=== PATIENT | female | born 1930 | race Caucasian/White ===

== ENCOUNTER 2016-04-10 16:25 | Inpatient (IN) | payer MEDICARE, OTHER ==
[~2016-04-10] VITALS: Ht 167.6 cm; Wt 59.9 kg
[2016-04-10] MEDS ORDERED: FOLI0.4T30 PO (17:07)
[2016-04-10] MEDS ORDERED: CITA10TA68 PO (17:07)
[2016-04-10] MEDS ORDERED: LOVA20 PO (17:07)
[2016-04-10] MEDS ORDERED: CARV25 PO (17:07)
[2016-04-10] MEDS ORDERED: AMLO-511 PO (17:07)
[2016-04-10] MEDS ORDERED: ASPI81 PO (17:07)
[2016-04-10] MEDS ORDERED: LISI-660 PO (17:07)
[2016-04-10] MEDS ORDERED: HYDR50 PO (17:07)
[2016-04-10] MEDS ORDERED: VIT1TABL66 PO (17:07)
[2016-04-10 17:36] LABS: BASOPHILS % (AUTO) 0.1 % (0.0-2.0); EOSINOPHILS % (AUTO) 0 % (1.0-6.0); HEMATOCRIT 24.6 % (36-46); HEMOGLOBIN 8.3 g/dL (12.0-16.0); LYMPHOCYTES # (AUTO) 1.1 K/uL (1.0-4.8); LYMPHOCYTES % (AUTO) 9.2 % (22.0-44.0); MEAN CORPUSCULAR HGB CONC 33.5 G/dL (31.0-37.0); MEAN CORPUSCULAR VOLUME 90 fL (80-100); MONOCYTES # (AUTO) 0.8 K/uL (0.1-1.0); MONOCYTES % (AUTO) 6.9 % (2.0-9.0); NEUTROPHILS % (AUTO) 83.8 % (40.0-70.0); PLATELET COUNT (AUTO) 202 K/uL (150-450); RED BLOOD CELL COUNT(AUTO) 2.75 MIL/uL (4.00-5.20); RED CELL DISTRIBUTION WIDTH 14.1 % (11.5-14.5)
[2016-04-10 17:47] LABS: INR 1.1 (0.9-1.1); PROTHROMBIN TIME 11.5 SEC (9.4-11.6)
[2016-04-10 17:48] LABS: ANION GAP 10 mmol/L (8-16); CALCIUM, TOTAL 8.6 mg/dL (8.8-10.5); CARBON DIOXIDE 26 mmol/L (22-29); CHLORIDE 101 mmol/L (98-107); CREATININE 1.91 mg/dL (0.60-1.30); GLOMERULAR FILTR. RATE CALC 25 mL/min (>60); POTASSIUM 4.3 mmol/L (3.5-5.1); SODIUM SERUM 137 mmol/L (136-145); UREA NITROGEN, BLOOD 52 mg/dL (7-18)
[2016-04-10 18:12] LABS: ALANINE AMINOTRANSFERASE 15 U/L (12-78); ALBUMIN 2.9 g/dL (3.4-5.0); ASPARTATE AMINOTRANSFERASE 17 U/L (15-37); BILIRUBIN,TOTAL 0.6 mg/dL (0.1-1.0); CREATINE KINASE, TOTAL 77 U/L (26-192)
[2016-04-10 18:13] LABS: CREATINE KINASE MB < 0.5 ng/mL (0-5)
[2016-04-10] MEDS ORDERED: SODIUM CHLORIDE 0.9% 1,000 ML IV ONE (18:30)
[2016-04-10 19:06] LABS: APPEARANCE,URINE CLOUDY (CLEAR); GLUCOSE, URINE (UA) NEGATIVE (NEGATIVE); KETONES,URINE NEGATIVE (NEGATIVE); LEUKOCYTE ESTERASE ,URINE SMALL (NEGATIVE); OCCULT BLOOD,URINE NEGATIVE (NEGATIVE); PH,URINE 5.5 (5.0-8.0); PROTEIN,URINE POS 1+ (NEGATIVE)
[2016-04-10 19:41] LABS: ADD UA MICROSCOPIC YES
[2016-04-10 19:42] LABS: AMORPHOUS SEDIMENT,UR Few /LPF (None Seen); RBC,URINE 0-2 /HPF (0-2); SQUAMOUS EPITHELIAL CELL,UR Many /LPF (None Seen)
[2016-04-10] MEDS ORDERED: CefTRIAXone 1 GM/DEXTROSE 50 ML IV ONE (19:45)
[2016-04-10] MEDS ORDERED: AZITHROMYCIN 500 MG/NS 250 ML IV ONE (19:45)
[2016-04-10 20:16] LABS: INFLUENZA TYPE B NEGATIVE FOR TYPE B (NEGATIVE)
[2016-04-10] MEDS ORDERED: ONDANSETRON HCL 4 MG/2 ML VIAL IVP PRN (20:30)
[2016-04-10] MEDS ORDERED: 0.9% SODIUM CHLORIDE 10 ML SYRINGE IVP PRN (20:30)
[2016-04-10] MEDS ORDERED: ACETAMINOPHEN 325 MG TABLET PO PRN (20:30)
[2016-04-10] MEDS ORDERED: MORPHINE SULFATE 2 MG/ML SYRINGE IVP ONE (20:30)
[2016-04-11] MEDS ORDERED: 0.9% SODIUM CHLORIDE 10 ML SYRINGE IVP PRN (03:15)
[2016-04-11] MEDS ORDERED: ONDANSETRON HCL 4 MG/2 ML VIAL IVP PRN (03:15)
[2016-04-11] MEDS ORDERED: OxyCODONE HCL/ACETAMINOPHEN 5-325 MG TABLET PO PRN ×2 (03:15)
[2016-04-11 06:46] LABS: GLUCOSE,POINT OF CARE 141 MG/DL (70-110)
[2016-04-11 08:53] VITALS: BP 111/55
[2016-04-11] MEDS: PANTOPRAZOLE SODIUM 40 MG/VIAL IVP SCH (10:25)
[2016-04-11] MEDS: DOCUSATE SODIUM 100 MG CAPSULE PO SCH ×2 (10:27→21:00)
[2016-04-11] MEDS: ASPIRIN 81 MG CHEWABLE TABLET PO SCH (10:27)
[2016-04-11] MEDS: AmLODIPine BESYLATE 5 MG TABLET PO SCH (10:28)
[2016-04-11] MEDS: CARVEDILOL 25 MG TABLET PO SCH ×2 (10:28→21:00)
[2016-04-11] MEDS: LISINOPRIL 5 MG TABLET PO SCH (10:28)
[2016-04-11] MEDS: HydrALAZINE HCL 50 MG TABLET PO SCH ×3 (10:28→21:00)
[2016-04-11 11:07] VITALS: BP 128/64
[2016-04-11 11:56] LABS: GLUCOSE,POINT OF CARE 152 MG/DL (70-110)
[2016-04-11] MEDS: FOLIC ACID 0.4 MG TABLET PO SCH (12:41)
[2016-04-11] MEDS: CITALOPRAM HYDROBROMIDE 10 MG TABLET PO SCH (12:41)
[2016-04-11] MEDS: LOVASTATIN 20 MG TABLET PO SCH (12:41)
[2016-04-11 15:35] VITALS: BP 119/51
[2016-04-11] MEDS ORDERED: AZITHROMYCIN 250 MG in SODIUM CHLORIDE 0.9% 150 ML IV SCH (16:00)
[2016-04-11] MEDS ORDERED: SODIUM CHLORIDE 0.9% 500 ML IV ONE (16:12)
[2016-04-11] MEDS: ALBUTEROL SULFATE 2.5 MG/0.5 ML NEB SOLUTION NEB PRN (17:04)
[2016-04-11] MEDS: IPRATROPIUM BROMIDE 0.5 MG/2.5 ML NEB SOLUTION NEB PRN (17:04)
[2016-04-11 18:36] LABS: GLUCOSE,POINT OF CARE 155 MG/DL (70-110)
[2016-04-11 19:46] VITALS: BP 113/41
[2016-04-11] MEDS ORDERED: CefTRIAXone 1 GM/DEXTROSE 50 ML IV SCH (21:00)
[2016-04-11 21:56] LABS: GLUCOSE,POINT OF CARE 150 MG/DL (70-110)
[2016-04-11 23:12] VITALS: BP 107/42
[2016-04-12] VITALS (19 sets, daily range): BP systolic 104–141; BP diastolic 41–62
[2016-04-12 06:50] LABS: CREATININE 1.65 mg/dL (0.60-1.30)
[2016-04-12 06:56] LABS: BASOPHILS # (AUTO) 0.02 K/uL (0.00-0.20); BASOPHILS % (AUTO) 0.2 % (0.0-2.0); EOSINOPHILS # (AUTO) 0.01 K/uL (0.00-0.70); LYMPHOCYTES # (AUTO) 0.9 K/uL (1.0-4.8); LYMPHOCYTES % (AUTO) 10.5 % (22.0-44.0); MEAN CORPUSCULAR HEMOGLOBIN 29.9 pg (26.0-34.0); MEAN CORPUSCULAR HGB CONC 33.6 G/dL (31.0-37.0); MEAN CORPUSCULAR VOLUME 89 fL (80-100); MONOCYTES # (AUTO) 0.6 K/uL (0.1-1.0); MONOCYTES % (AUTO) 6.3 % (2.0-9.0); NEUTROPHILS # (AUTO) 7.4 K/uL (1.8-7.7); NEUTROPHILS % (AUTO) 82.9 % (40.0-70.0); PLATELET COUNT (AUTO) 187 K/uL (150-450); RED BLOOD CELL COUNT(AUTO) 2.29 MIL/uL (4.00-5.20); RED CELL DISTRIBUTION WIDTH 14.6 % (11.5-14.5); WHITE BLOOD COUNT (AUTO) 8.9 K/uL (4.5-11.0)
[2016-04-12 07:00] LABS: HEMOGLOBIN 6.8 g/dL (12.0-16.0)
[2016-04-12 07:01] LABS: HEMATOCRIT 20.3 % (36-46)
[2016-04-12] MEDS: CARVEDILOL 25 MG TABLET PO SCH ×2 (08:29→20:19)
[2016-04-12] MEDS: DOCUSATE SODIUM 100 MG CAPSULE PO SCH ×2 (08:29→20:19)
[2016-04-12] MEDS: PANTOPRAZOLE SODIUM 40 MG/VIAL IVP SCH (08:29)
[2016-04-12] MEDS: LISINOPRIL 5 MG TABLET PO SCH (08:29)
[2016-04-12] MEDS: CITALOPRAM HYDROBROMIDE 10 MG TABLET PO SCH (08:30)
[2016-04-12] MEDS: FOLIC ACID 0.4 MG TABLET PO SCH (08:30)
[2016-04-12] MEDS: AmLODIPine BESYLATE 5 MG TABLET PO SCH (08:30)
[2016-04-12] MEDS: ASPIRIN 81 MG CHEWABLE TABLET PO SCH (08:30)
[2016-04-12] MEDS: HydrALAZINE HCL 50 MG TABLET PO SCH ×3 (08:30→20:19)
[2016-04-12] MEDS: LOVASTATIN 20 MG TABLET PO SCH (08:30)
[2016-04-12 10:28] LABS: HEMOGLOBIN 6.8 g/dL (12.0-16.0)
[2016-04-12 11:51] LABS: GLUCOSE,POINT OF CARE 181 MG/DL (70-110)
[2016-04-12] MEDS: IPRATROPIUM BROMIDE 0.5 MG/2.5 ML NEB SOLUTION NEB PRN (12:47)
[2016-04-12] MEDS: ALBUTEROL SULFATE 2.5 MG/0.5 ML NEB SOLUTION NEB PRN (12:47)
[2016-04-12] MEDS ORDERED: MethylPREDNISolone SOD SUCC 40 MG/ML VIAL IVP SCH (13:15)
[2016-04-12 14:45] LABS: ABG A-A DIFF O2 87.4 mmHg (10-20.0); ABG BASE EXCESS -2.8 mmol/L (-2.0-3.0); ABG HCO3 22.3 mmol/L (22.0-26.0); ABG OXYHEMOGLOBIN 93.2 % (94.0-100.0); ABG PCO2 30 mmHg (35-45); ABG PH 7.468 (7.35-7.450); TEMPERATURE, FAHRENHEIT, BG 98.1 FAHREN (96.0-98.6)
[2016-04-12 14:46] LABS: ALLEN TEST, BLOOD GAS Positive
[2016-04-12 16:56] LABS: GLUCOSE,POINT OF CARE 159 MG/DL (70-110)
[2016-04-12] MEDS: MethylPREDNISolone SOD SUCC 40 MG/ML VIAL IVP SCH (20:19)
[2016-04-12] MEDS ORDERED: SODIUM CHLORIDE 0.9% 250 ML IV ONE (20:43)
[2016-04-12] MEDS: CefoTEtan DISOD 1 GM/DEXTROSE 50 ML IV SCH (20:51)
[2016-04-12 21:35] LABS: GLUCOSE,POINT OF CARE 174 MG/DL (70-110)
[2016-04-12 22:30] LABS: HEMATOCRIT 27.6 % (36-46); HEMOGLOBIN 9.1 g/dL (12.0-16.0)
[2016-04-13] MEDS: MethylPREDNISolone SOD SUCC 40 MG/ML VIAL IVP SCH ×4 (00:03→17:18)
[2016-04-13] MEDS: ALBUTEROL SULFATE 2.5 MG/0.5 ML NEB SOLUTION NEB PRN (00:22)
[2016-04-13] MEDS: IPRATROPIUM BROMIDE 0.5 MG/2.5 ML NEB SOLUTION NEB PRN (00:22)
[2016-04-13 05:10] VITALS: BP 124/58
[2016-04-13 05:31] LABS: GLUCOSE,POINT OF CARE 321 MG/DL (70-110)
[2016-04-13] MEDS: INSULIN ASPART 100 UNITS/ML SQ PRN ×4 (05:39→21:31)
[2016-04-13] MEDS ORDERED: DEXTROSE 50%-WATER 25 GM/50 ML SYRINGE IVP PRN (05:45)
[2016-04-13 06:45] LABS: BASOPHILS % (AUTO) 0.3 % (0.0-2.0); EOSINOPHILS % (AUTO) 0 % (1.0-6.0); HEMATOCRIT 28.9 % (36-46); HEMOGLOBIN 9.7 g/dL (12.0-16.0); LYMPHOCYTES # (AUTO) 0.5 K/uL (1.0-4.8); LYMPHOCYTES % (AUTO) 6.6 % (22.0-44.0); MEAN CORPUSCULAR HEMOGLOBIN 30.1 pg (26.0-34.0); MEAN CORPUSCULAR HGB CONC 33.4 G/dL (31.0-37.0); MEAN CORPUSCULAR VOLUME 90 fL (80-100); MONOCYTES % (AUTO) 0.4 % (2.0-9.0); NEUTROPHILS # (AUTO) 7.7 K/uL (1.8-7.7); PLATELET COUNT (AUTO) 193 K/uL (150-450); RED BLOOD CELL COUNT(AUTO) 3.21 MIL/uL (4.00-5.20); RED CELL DISTRIBUTION WIDTH 14.3 % (11.5-14.5); WHITE BLOOD COUNT (AUTO) 8.3 K/uL (4.5-11.0)
[2016-04-13 06:53] LABS: NEUTROPHILS % (AUTO) 92.7 % (40.0-70.0)
[2016-04-13 07:00] VITALS: BP 140/54
[2016-04-13] MEDS: DOCUSATE SODIUM 100 MG CAPSULE PO SCH ×2 (09:12→21:27)
[2016-04-13] MEDS: FOLIC ACID 0.4 MG TABLET PO SCH (09:12)
[2016-04-13] MEDS: PANTOPRAZOLE SODIUM 40 MG/VIAL IVP SCH (09:12)
[2016-04-13] MEDS: HydrALAZINE HCL 50 MG TABLET PO SCH ×3 (09:13→21:27)
[2016-04-13] MEDS: CARVEDILOL 25 MG TABLET PO SCH ×2 (09:13→21:27)
[2016-04-13] MEDS: ASPIRIN 81 MG CHEWABLE TABLET PO SCH (09:13)
[2016-04-13] MEDS: LOVASTATIN 20 MG TABLET PO SCH (09:13)
[2016-04-13 10:02] VITALS: BP 136/58
[2016-04-13 12:02] VITALS: BP 131/52
[2016-04-13 12:31] LABS: GLUCOSE,POINT OF CARE 301 MG/DL (70-110)
[2016-04-13 16:12] VITALS: BP 139/64
[2016-04-13 20:06] VITALS: BP 131/65
[2016-04-13] MEDS: CefoTEtan DISOD 1 GM/DEXTROSE 50 ML IV SCH (21:27)
[2016-04-14] MEDS: MethylPREDNISolone SOD SUCC 40 MG/ML VIAL IVP SCH ×2 (00:37→09:24)
[2016-04-14 01:02] VITALS: BP 139/60
[2016-04-14 04:00] VITALS: BP 142/62
[2016-04-14 04:12] LABS: GLUCOSE COMMENT 1 Received Meds; GLUCOSE,POINT OF CARE 342 MG/DL (70-110)
[2016-04-14 04:12] LABS: GLUCOSE,POINT OF CARE 252 MG/DL (70-110)
[2016-04-14] MEDS: INSULIN ASPART 100 UNITS/ML SQ PRN (05:45)
[2016-04-14 06:11] LABS: GLUCOSE COMMENT 1 Received Meds; GLUCOSE,POINT OF CARE 295 MG/DL (70-110)
[2016-04-14 07:40] LABS: CALCIUM, TOTAL 8.6 mg/dL (8.8-10.5); CREATININE 1.29 mg/dL (0.60-1.30); POTASSIUM 4.3 mmol/L (3.5-5.1)
[2016-04-14 07:53] VITALS: BP 147/63
[2016-04-14] MEDS: ASPIRIN 81 MG CHEWABLE TABLET PO SCH (09:24)
[2016-04-14] MEDS: FOLIC ACID 0.4 MG TABLET PO SCH (09:24)
[2016-04-14] MEDS: DOCUSATE SODIUM 100 MG CAPSULE PO SCH (09:24)
[2016-04-14] MEDS: PANTOPRAZOLE SODIUM 40 MG/VIAL IVP SCH (09:24)
[2016-04-14] MEDS: LOVASTATIN 20 MG TABLET PO SCH (09:24)
[2016-04-14] MEDS: CARVEDILOL 25 MG TABLET PO SCH (09:24)
[2016-04-14] MEDS: HydrALAZINE HCL 50 MG TABLET PO SCH (09:24)
[2016-04-14 11:56] VITALS: BP 146/63
[2016-04-14] MEDS ORDERED: BACTDSB PO (12:10)
== END 2016-04-14 12:48 | disposition home health service (06) | DRG 682 ==
LOC: EMS 16:33 → 6N 04-11 05:17 → UNDODISIN 04-14 11:00
PROVIDERS: ADMIT Internal Medicine; ATTEND Internal Medicine
PROC: 30233N1 Transfusion of Nonautologous Red Blood Cells into Peripheral Vein, Percutaneous Approach (ICD-10-PCS; principal; 2016-04-12)
DX: N17.9 Acute kidney failure, unspecified (principal); J18.9 Pneumonia, unspecified organism; E43 Unspecified severe protein-calorie malnutrition; N39.0 Urinary tract infection, site not specified; J45.901 Unspecified asthma with (acute) exacerbation; D63.8 Anemia in other chronic diseases classified elsewhere; R53.81 Other malaise; E11.9 Type 2 diabetes mellitus without complications; I25.10 Atherosclerotic heart disease of native coronary artery without angina pectoris; F03.90 Unspecified dementia, unspecified severity, without behavioral disturbance, psychotic disturbance, mood disturbance, and anxiety; E86.0 Dehydration; R91.1 Solitary pulmonary nodule; J44.9 Chronic obstructive pulmonary disease, unspecified; E78.00 Pure hypercholesterolemia, unspecified; I10 Essential (primary) hypertension; Z74.01 Bed confinement status; Z68.21 Body mass index [BMI] 21.0-21.9, adult; Z16.35 Resistance to multiple antimicrobial drugs; Z79.82 Long term (current) use of aspirin; Z79.899 Other long term (current) drug therapy; Z95.0 Presence of cardiac pacemaker; Z99.81 Dependence on supplemental oxygen; Z82.49 Family history of ischemic heart disease and other diseases of the circulatory system
CPT/HCPCS: 71250; 82805; 82962; 85014; 85018; 86850; 86900; 86901; 86920; 87040; 87086; 87804; 93005; 94640; 97163; 99285; C9113; J0456; J0696; J2270; J2920; J3490; J7040; J7050; P9016

== ENCOUNTER 2016-09-13 10:34 | Emergency (ER) | payer MEDICARE, OTHER ==
[~2016-09-13] VITALS: Ht 152.4 cm; Wt 98.0 kg
[~2016-09-13 10:34] MED LIST: ASPI81 PO; BACTDSB PO; CARV25 PO; FOLI0.4T30 PO; HYDR-2924 PO; LOVA20 PO; VIT1TABL66 PO
[2016-09-13] MEDS ORDERED: OMEP20 PO (10:47)
[2016-09-13] MEDS ORDERED: LISI-662 PO (10:47)
[2016-09-13] MEDS ORDERED: CITA20TA9 PO (10:47)
[2016-09-13 12:21] LABS: ADD UA MICROSCOPIC YES; APPEARANCE,URINE CLOUDY (CLEAR); GLUCOSE, URINE (UA) NEGATIVE (NEGATIVE); KETONES,URINE NEGATIVE (NEGATIVE); LEUKOCYTE ESTERASE ,URINE NEGATIVE (NEGATIVE); OCCULT BLOOD,URINE TRACE (NEGATIVE); PH,URINE 5.5 (5.0-8.0); PROTEIN,URINE NEGATIVE (NEGATIVE)
[2016-09-13 12:25] LABS: BASOPHILS # (AUTO) 0.03 K/uL (0.00-0.20); BASOPHILS % (AUTO) 0.5 % (0.0-2.0); EOSINOPHILS # (AUTO) 0.05 K/uL (0.00-0.70); HEMATOCRIT 30.5 % (36-46); HEMOGLOBIN 10.4 g/dL (12.0-16.0); LYMPHOCYTES % (AUTO) 17.7 % (22.0-44.0); MEAN CORPUSCULAR VOLUME 94 fL (80-100); MONOCYTES # (AUTO) 0.4 K/uL (0.1-1.0); NEUTROPHILS # (AUTO) 4.3 K/uL (1.8-7.7); PLATELET COUNT (AUTO) 149 K/uL (150-450); RED BLOOD CELL COUNT(AUTO) 3.24 MIL/uL (4.00-5.20); RED CELL DISTRIBUTION WIDTH 13.8 % (11.5-14.5); WHITE BLOOD COUNT (AUTO) 5.8 K/uL (4.5-11.0)
[2016-09-13 12:29] LABS: ANION GAP 8 mmol/L (8-16); CALCIUM, TOTAL 9.3 mg/dL (8.8-10.5); CARBON DIOXIDE 28 mmol/L (22-29); CHLORIDE 108 mmol/L (98-107); CREATININE 1.16 mg/dL (0.60-1.30); GLOMERULAR FILTR. RATE CALC 44 mL/min (>60); POTASSIUM 5.2 mmol/L (3.5-5.1); SODIUM SERUM 144 mmol/L (136-145); UREA NITROGEN, BLOOD 23 mg/dL (7-18)
[2016-09-13 12:30] LABS: RBC,URINE 0-2 /HPF (0-2); SQUAMOUS EPITHELIAL CELL,UR Few /LPF (None Seen); WBC,URINE 0-2 /HPF (0-5)
[2016-09-13 12:35] LABS: ALANINE AMINOTRANSFERASE 19 U/L (12-78); ALBUMIN 3.3 g/dL (3.4-5.0); ASPARTATE AMINOTRANSFERASE 19 U/L (15-37); BILIRUBIN,TOTAL 0.3 mg/dL (0.1-1.0); CREATINE KINASE, TOTAL 27 U/L (26-192); TOTAL PROTEIN, SERUM 6.6 g/dL (6.4-8.2)
[2016-09-13 12:44] LABS: B-TYPE NATRIURETIC PEPTIDE 74 pg/mL (0-100)
[2016-09-13] MEDS ORDERED: SODIUM CHLORIDE 0.9% 1,000 ML IV ONE (12:45)
[2016-09-13 15:24] VITALS: BP 152/72
== END 2016-09-13 15:50 | disposition home or self-care (01) ==
LOC: EMS 10:35
DX: E86.0 Dehydration (principal); I10 Essential (primary) hypertension; E11.9 Type 2 diabetes mellitus without complications; E78.00 Pure hypercholesterolemia, unspecified; I25.10 Atherosclerotic heart disease of native coronary artery without angina pectoris; Z95.0 Presence of cardiac pacemaker; Z79.82 Long term (current) use of aspirin
CPT/HCPCS: 36415; 71010; 80053; 81001; 82550; 82962; 83880; 84484; 85025; 93005; 96360; 96361; 99285; J7030

== ENCOUNTER 2016-09-26 15:56 | Inpatient (IN) | payer MEDICARE, OTHER ==
[~2016-09-26] VITALS: Ht 157.5 cm; Wt 56.0 kg
[~2016-09-26 15:56] MED LIST changes: -BACTDSB PO; +CITA20TA9 PO; +LISI-662 PO; -LOVA20 PO; +OMEP20 PO
[2016-09-26 16:49] LABS: BASOPHILS % (AUTO) 0.5 % (0.0-2.0); EOSINOPHILS % (AUTO) 0.7 % (1.0-6.0); HEMATOCRIT 29.2 % (36-46); HEMOGLOBIN 9.8 g/dL (12.0-16.0); LYMPHOCYTES # (AUTO) 1.2 K/uL (1.0-4.8); LYMPHOCYTES % (AUTO) 20.8 % (22.0-44.0); MEAN CORPUSCULAR HEMOGLOBIN 31.1 pg (26.0-34.0); MEAN CORPUSCULAR HGB CONC 33.4 G/dL (31.0-37.0); MEAN CORPUSCULAR VOLUME 93 fL (80-100); MONOCYTES # (AUTO) 0.4 K/uL (0.1-1.0); MONOCYTES % (AUTO) 6.4 % (2.0-9.0); NEUTROPHILS # (AUTO) 4.2 K/uL (1.8-7.7); NEUTROPHILS % (AUTO) 71.6 % (40.0-70.0); PLATELET COUNT (AUTO) 126 K/uL (150-450); RED BLOOD CELL COUNT(AUTO) 3.13 MIL/uL (4.00-5.20); RED CELL DISTRIBUTION WIDTH 14.1 % (11.5-14.5); WHITE BLOOD COUNT (AUTO) 5.9 K/uL (4.5-11.0)
[2016-09-26 17:02] LABS: ANION GAP 5 mmol/L (8-16); CALCIUM, TOTAL 9.1 mg/dL (8.8-10.5); CARBON DIOXIDE 28 mmol/L (22-29); CHLORIDE 108 mmol/L (98-107); CREATININE 1.33 mg/dL (0.60-1.30); GLOMERULAR FILTR. RATE CALC 38 mL/min (>60); POTASSIUM 5.1 mmol/L (3.5-5.1); SODIUM SERUM 141 mmol/L (136-145); UREA NITROGEN, BLOOD 39 mg/dL (7-18)
[2016-09-26 17:08] LABS: ALANINE AMINOTRANSFERASE 56 U/L (12-78); ALBUMIN 3.2 g/dL (3.4-5.0); ASPARTATE AMINOTRANSFERASE 36 U/L (15-37); BILIRUBIN,TOTAL 0.3 mg/dL (0.1-1.0); CREATINE KINASE, TOTAL 31 U/L (26-192); TOTAL PROTEIN, SERUM 6.5 g/dL (6.4-8.2)
[2016-09-26 17:26] LABS: B-TYPE NATRIURETIC PEPTIDE 78 pg/mL (0-100)
[2016-09-26 17:36] LABS: INR 1.1 (0.9-1.1); PROTHROMBIN TIME 11.4 SEC (9.4-11.6)
[2016-09-26 18:04] LABS: APPEARANCE,URINE TURBID (CLEAR); GLUCOSE, URINE (UA) NEGATIVE (NEGATIVE); KETONES,URINE NEGATIVE (NEGATIVE); LEUKOCYTE ESTERASE ,URINE TRACE (NEGATIVE); PROTEIN,URINE NEGATIVE (NEGATIVE)
[2016-09-26 18:06] LABS: ADD UA MICROSCOPIC YES; OCCULT BLOOD,URINE SMALL (NEGATIVE)
[2016-09-26 18:07] LABS: SQUAMOUS EPITHELIAL CELL,UR Few /LPF (None Seen)
[2016-09-26] MEDS ORDERED: ACETAMINOPHEN 325 MG TABLET PO PRN ×2 (19:15→23:00)
[2016-09-26] MEDS ORDERED: SODIUM CHLORIDE 0.9% 1,000 ML IV ONE (19:15)
[2016-09-26] MEDS ORDERED: CefTRIAXone 1 GM/DEXTROSE 50 ML IV ONE (19:15)
[2016-09-26] MEDS ORDERED: ONDANSETRON HCL 4 MG/2 ML VIAL IVP PRN ×2 (19:15→23:00)
[2016-09-26] MEDS ORDERED: 0.9% SODIUM CHLORIDE 10 ML SYRINGE IVP PRN ×2 (19:15→23:00)
[2016-09-26 21:17] LABS: GLUCOSE,POINT OF CARE 128 MG/DL (70-110)
[2016-09-26 21:57] VITALS: BP 159/74
[2016-09-26] MEDS ORDERED: MAGNESIUM HYDROXIDE SUSPENSION 30 ML UDCUP PO PRN (23:00)
[2016-09-26] MEDS: CARVEDILOL 25 MG TABLET PO SCH (23:00)
[2016-09-26] MEDS ORDERED: OxyCODONE HCL/ACETAMINOPHEN 5-325 MG TABLET PO PRN ×2 (23:00)
[2016-09-26 23:34] VITALS: BP 160/69
[2016-09-26] MEDS: DOCUSATE SODIUM 100 MG CAPSULE PO SCH (23:40)
[2016-09-26] MEDS: SODIUM CHLORIDE 0.9% 1,000 ML IV SCH (23:41)
[2016-09-27] MEDS ORDERED: PNEUMOCOCCAL VACCINE POLYVALENT 0.5 ML VIAL [PPSV23] IM ONE (01:15)
[2016-09-27 04:39] VITALS: BP 156/70
[2016-09-27 07:03] LABS: BASOPHILS % (AUTO) 0.6 % (0.0-2.0); EOSINOPHILS % (AUTO) 1.5 % (1.0-6.0); HEMOGLOBIN 10.1 g/dL (12.0-16.0); LYMPHOCYTES # (AUTO) 1.3 K/uL (1.0-4.8); MEAN CORPUSCULAR HEMOGLOBIN 32.2 pg (26.0-34.0); MEAN CORPUSCULAR HGB CONC 34.8 G/dL (31.0-37.0); MEAN CORPUSCULAR VOLUME 92 fL (80-100); MONOCYTES # (AUTO) 0.4 K/uL (0.1-1.0); MONOCYTES % (AUTO) 7.8 % (2.0-9.0); NEUTROPHILS # (AUTO) 3.5 K/uL (1.8-7.7); NEUTROPHILS % (AUTO) 65.1 % (40.0-70.0); PLATELET COUNT (AUTO) 126 K/uL (150-450); RED BLOOD CELL COUNT(AUTO) 3.15 MIL/uL (4.00-5.20); RED CELL DISTRIBUTION WIDTH 14.2 % (11.5-14.5); WHITE BLOOD COUNT (AUTO) 5.3 K/uL (4.5-11.0)
[2016-09-27 07:29] VITALS: BP 160/69
[2016-09-27 07:32] LABS: BILIRUBIN,TOTAL 0.4 mg/dL (0.1-1.0); CALCIUM, TOTAL 9.1 mg/dL (8.8-10.5); CREATININE 1.07 mg/dL (0.60-1.30); POTASSIUM 4.6 mmol/L (3.5-5.1); TOTAL PROTEIN, SERUM 6.4 g/dL (6.4-8.2)
[2016-09-27] MEDS: CARVEDILOL 25 MG TABLET PO SCH ×2 (09:00→20:09)
[2016-09-27] MEDS: PANTOPRAZOLE SODIUM 40 MG/VIAL IVP SCH (10:18)
[2016-09-27] MEDS: SODIUM CHLORIDE 0.9% 1,000 ML IV SCH ×2 (10:18→20:08)
[2016-09-27] MEDS: HydrALAZINE HCL 50 MG TABLET PO SCH ×3 (10:20→20:08)
[2016-09-27] MEDS: DOCUSATE SODIUM 100 MG CAPSULE PO SCH ×2 (10:20→20:09)
[2016-09-27] MEDS: ASPIRIN 81 MG CHEWABLE TABLET PO SCH (10:20)
[2016-09-27] MEDS: FOLIC ACID 0.4 MG TABLET PO SCH (10:20)
[2016-09-27] MEDS: LISINOPRIL 20 MG TABLET PO SCH (10:20)
[2016-09-27] MEDS ORDERED: DEXTROSE 50%-WATER 25 GM/50 ML SYRINGE IVP PRN (11:15)
[2016-09-27 11:28] VITALS: BP 174/68
[2016-09-27] MEDS: INSULIN ASPART 100 UNITS/ML SQ PRN ×2 (13:12→18:50)
[2016-09-27 15:16] VITALS: BP 147/61
[2016-09-27 19:42] LABS: GLUCOSE,POINT OF CARE 176 MG/DL (70-110)
[2016-09-27 19:42] LABS: GLUCOSE,POINT OF CARE 173 MG/DL (70-110)
[2016-09-27 19:48] VITALS: BP 117/50
[2016-09-28 00:02] VITALS: BP 152/63
[2016-09-28] MEDS: SODIUM CHLORIDE 0.9% 1,000 ML IV SCH (04:59)
[2016-09-28 05:24] VITALS: BP 156/63
[2016-09-28 07:05] VITALS: BP 186/70
[2016-09-28 07:57] LABS: GLUCOSE,POINT OF CARE 137 MG/DL (70-110)
[2016-09-28 07:57] LABS: GLUCOSE,POINT OF CARE 117 MG/DL (70-110)
[2016-09-28] MEDS: HydrALAZINE HCL 50 MG TABLET PO SCH ×2 (08:34→16:39)
[2016-09-28] MEDS: LISINOPRIL 20 MG TABLET PO SCH (08:35)
[2016-09-28] MEDS: DOCUSATE SODIUM 100 MG CAPSULE PO SCH (08:35)
[2016-09-28] MEDS: ASPIRIN 81 MG CHEWABLE TABLET PO SCH (08:35)
[2016-09-28] MEDS: CARVEDILOL 25 MG TABLET PO SCH (08:35)
[2016-09-28] MEDS: PANTOPRAZOLE SODIUM 40 MG/VIAL IVP SCH (08:35)
[2016-09-28] MEDS: FOLIC ACID 0.4 MG TABLET PO SCH (08:35)
[2016-09-28 11:32] VITALS: BP 147/58
[2016-09-28] MEDS ORDERED: AMLO-512 PO (11:45)
[2016-09-28] MEDS ORDERED: AmLODIPine BESYLATE 10 MG TABLET PO SCH (11:45)
[2016-09-28] MEDS ORDERED: AMLO10TA4 PO (11:50)
[2016-09-28] MEDS: INSULIN ASPART 100 UNITS/ML SQ PRN (12:44)
[2016-09-28 14:57] LABS: GLUCOSE COMMENT 1 Received Meds; GLUCOSE,POINT OF CARE 160 MG/DL (70-110)
[2016-09-28 15:28] VITALS: BP 139/59
== END 2016-09-28 17:15 | disposition home or self-care (01) | DRG 683 ==
LOC: EMS 15:58 → 5S 19:00
PROVIDERS: ADMIT Internal Medicine; ATTEND Internal Medicine
PROC: 3E0234Z Introduction of Serum, Toxoid and Vaccine into Muscle, Percutaneous Approach (ICD-10-PCS; principal; 2016-09-27)
DX: N17.9 Acute kidney failure, unspecified (principal); N39.0 Urinary tract infection, site not specified; R55 Syncope and collapse; E86.0 Dehydration; N18.9 Chronic kidney disease, unspecified; I12.9 Hypertensive chronic kidney disease with stage 1 through stage 4 chronic kidney disease, or unspecified chronic kidney disease; I25.10 Atherosclerotic heart disease of native coronary artery without angina pectoris; E78.00 Pure hypercholesterolemia, unspecified; E11.22 Type 2 diabetes mellitus with diabetic chronic kidney disease; G30.9 Alzheimer's disease, unspecified; F02.80 Dementia in other diseases classified elsewhere, unspecified severity, without behavioral disturbance, psychotic disturbance, mood disturbance, and anxiety; D64.9 Anemia, unspecified; B96.1 Klebsiella pneumoniae [K. pneumoniae] as the cause of diseases classified elsewhere; Z82.49 Family history of ischemic heart disease and other diseases of the circulatory system; Z95.0 Presence of cardiac pacemaker; Z23 Encounter for immunization
CPT/HCPCS: 70450; 82962; 87081; 87086; 90471; 93005; 93880; 96365; 99285; C9113; J0696; J7030

== ENCOUNTER 2017-02-05 00:17 | Inpatient (IN) | payer MEDICARE, OTHER ==
[~2017-02-05] VITALS: Ht 160 cm; Wt 53.0 kg
[2017-02-05] VITALS (7 sets, daily range): BP systolic 101–142; BP diastolic 47–58
[~2017-02-05 00:17] MED LIST changes: +AMLO-512 PO; -CARV25 PO; -CITA20TA9 PO; -FOLI0.4T30 PO; +FOLI0.4T4 PO; -LISI-662 PO
[2017-02-05 00:32] LABS: GLUCOSE,POINT OF CARE 193 MG/DL (70-110)
[2017-02-05] MEDS ORDERED: ONDANSETRON HCL 4 MG/2 ML VIAL IVP ONE (01:00)
[2017-02-05] MEDS ORDERED: SODIUM CHLORIDE 0.9% 500 ML IV ONE (01:00)
[2017-02-05] MEDS ORDERED: ACETAMINOPHEN 500 MG TABLET PO ONE (01:00)
[2017-02-05 01:03] LABS: BASOPHILS # (AUTO) 0.01 K/uL (0.00-0.20); BASOPHILS % (AUTO) 0.1 % (0.0-2.0); EOSINOPHILS # (AUTO) 0.06 K/uL (0.00-0.70); EOSINOPHILS % (AUTO) 0.42 % (1.0-6.0); HEMOGLOBIN 10.3 g/dL (12.0-16.0); LYMPHOCYTES # (AUTO) 0.8 K/uL (1.0-4.8); LYMPHOCYTES % (AUTO) 5.8 % (22.0-44.0); MEAN CORPUSCULAR HEMOGLOBIN 31.9 pg (26.0-34.0); MEAN CORPUSCULAR HGB CONC 33.1 G/dL (31.0-37.0); MEAN CORPUSCULAR VOLUME 96 fL (80-100); MONOCYTES # (AUTO) 0.6 K/uL (0.1-1.0); MONOCYTES % (AUTO) 4.3 % (2.0-9.0); NEUTROPHILS # (AUTO) 12.5 K/uL (1.8-7.7); PLATELET COUNT (AUTO) 135 K/uL (150-450); RED BLOOD CELL COUNT(AUTO) 3.22 MIL/uL (4.00-5.20); WHITE BLOOD COUNT (AUTO) 13.9 K/uL (4.5-11.0)
[2017-02-05 01:05] LABS: NEUTROPHILS % (AUTO) 89.4 % (40.0-70.0)
[2017-02-05 01:14] LABS: ANION GAP 10 mmol/L (8-16); CALCIUM, TOTAL 9.2 mg/dL (8.8-10.5); CARBON DIOXIDE 27 mmol/L (22-29); CHLORIDE 103 mmol/L (98-107); CREATININE 1.23 mg/dL (0.60-1.30); GLOMERULAR FILTR. RATE CALC 41 mL/min (>60); POTASSIUM 4.6 mmol/L (3.5-5.1); SODIUM SERUM 140 mmol/L (136-145); UREA NITROGEN, BLOOD 40 mg/dL (7-18)
[2017-02-05 01:16] LABS: INR 1.1 (0.9-1.1); PROTHROMBIN TIME 11.2 SEC (9.4-11.6)
[2017-02-05 01:20] LABS: ALANINE AMINOTRANSFERASE 24 U/L (12-78); ALBUMIN 3.4 g/dL (3.4-5.0); ASPARTATE AMINOTRANSFERASE 18 U/L (15-37); BILIRUBIN,TOTAL 0.6 mg/dL (0.1-1.0); CREATINE KINASE, TOTAL 38 U/L (26-192); TOTAL PROTEIN, SERUM 6.8 g/dL (6.4-8.2)
[2017-02-05 01:27] LABS: B-TYPE NATRIURETIC PEPTIDE 134 pg/mL (0-100)
[2017-02-05 02:27] LABS: APPEARANCE,URINE CLOUDY (CLEAR); GLUCOSE, URINE (UA) NEGATIVE (NEGATIVE); KETONES,URINE NEGATIVE (NEGATIVE); LEUKOCYTE ESTERASE ,URINE MODERATE (NEGATIVE); OCCULT BLOOD,URINE MODERATE (NEGATIVE); PH,URINE 7.5 (5.0-8.0); PROTEIN,URINE SEE CONFIRM (NEGATIVE)
[2017-02-05 02:30] LABS: ADD UA MICROSCOPIC YES
[2017-02-05] MEDS ORDERED: CefTRIAXone 1 GM/DEXTROSE 50 ML IV ONE (02:30)
[2017-02-05] MEDS ORDERED: AZITHROMYCIN 500 MG/NS 250 ML IV ONE (02:30)
[2017-02-05 02:58] LABS: SQUAMOUS EPITHELIAL CELL,UR Few /LPF (None Seen); SULFOSALICYLIC ACID,URINE 1+ (Negative)
[2017-02-05] MEDS ORDERED: ALBUTEROL SULFATE 2.5 MG/0.5 ML NEB SOLUTION NEB ONE (03:00)
[2017-02-05] MEDS ORDERED: IPRATROPIUM BROMIDE 0.5 MG/2.5 ML NEB SOLUTION NEB ONE (03:00)
[2017-02-05] MEDS ORDERED: ASPIRIN 81 MG CHEWABLE TABLET PO ONE (03:15)
[2017-02-05] MEDS ORDERED: DEXTROSE 50%-WATER 25 GM/50 ML SYRINGE IVP PRN (11:30)
[2017-02-05] MEDS: SODIUM CHLORIDE 0.45% 1,000 ML IV SCH (12:58)
[2017-02-05] MEDS: HydrALAZINE HCL 50 MG TABLET PO SCH ×2 (16:00→20:22)
[2017-02-05] MEDS: HEPARIN SODIUM,PORCINE 5,000 UNITS/ML VIAL SQ SCH ×2 (16:09→20:22)
[2017-02-05 17:23] LABS: GLUCOSE,POINT OF CARE 136 MG/DL (70-110)
[2017-02-05] MEDS: FAMOTIDINE 20 MG TABLET PO SCH (20:22)
[2017-02-05] MEDS ORDERED: CefTRIAXone 1 GM/DEXTROSE 50 ML IV SCH (21:00)
[2017-02-05] MEDS ORDERED: AZITHROMYCIN 500 MG/NS 250 ML IV SCH (22:00)
[2017-02-05] MEDS: INSULIN ASPART 100 UNITS/ML SQ PRN (22:35)
[2017-02-06 01:34] LABS: GLUCOSE COMMENT 1 Received Meds; GLUCOSE,POINT OF CARE 188 MG/DL (70-110)
[2017-02-06 04:14] VITALS: BP 135/54
[2017-02-06] MEDS: SODIUM CHLORIDE 0.45% 1,000 ML IV SCH (04:16)
[2017-02-06 06:12] LABS: GLUCOSE,POINT OF CARE 112 MG/DL (70-110)
[2017-02-06 07:55] VITALS: BP 140/55
[2017-02-06] MEDS: ASPIRIN 81 MG CHEWABLE TABLET PO SCH (08:53)
[2017-02-06] MEDS: FAMOTIDINE 20 MG TABLET PO SCH ×2 (08:53→20:32)
[2017-02-06] MEDS: HydrALAZINE HCL 50 MG TABLET PO SCH ×3 (08:53→20:22)
[2017-02-06] MEDS: HEPARIN SODIUM,PORCINE 5,000 UNITS/ML VIAL SQ SCH ×3 (08:53→20:32)
[2017-02-06] MEDS: AmLODIPine BESYLATE 10 MG TABLET PO SCH (08:53)
[2017-02-06] MEDS: FOLIC ACID 0.4 MG TABLET PO SCH (08:53)
[2017-02-06] MEDS ORDERED: ASPIRIN 81 MG CHEWABLE TABLET PO SCH (09:00)
[2017-02-06] MEDS ORDERED: [UNRECOGNIZED DRUG - OTHER] PO SCH (09:00)
[2017-02-06] MEDS ORDERED: AmLODIPine BESYLATE 10 MG TABLET PO SCH (09:00)
[2017-02-06] MEDS ORDERED: FOLIC ACID 0.4 MG TABLET PO SCH (09:00)
[2017-02-06 11:32] VITALS: BP 142/54
[2017-02-06 12:08] LABS: GLUCOSE COMMENT 1 Received Meds; GLUCOSE,POINT OF CARE 206 MG/DL (70-110)
[2017-02-06] MEDS ORDERED: PIPERACILLIN SODIUM/TAZOBACTAM 2.25 GM in DEXTROSE 5%-WATER 50 ML IV SCH (16:00)
[2017-02-06 16:07] VITALS: BP 132/51
[2017-02-06] MEDS ORDERED: VANCOMYCIN HCL 1 GM/D5% WATER 200 ML IV ONE (16:30)
[2017-02-06 17:22] LABS: GLUCOSE,POINT OF CARE 111 MG/DL (70-110)
[2017-02-06 19:42] VITALS: BP 98/55
[2017-02-06] MEDS: INSULIN ASPART 100 UNITS/ML SQ PRN (20:32)
[2017-02-06] MEDS: CefTRIAXone 1 GM/DEXTROSE 50 ML IV SCH (20:32)
[2017-02-06 23:33] VITALS: BP 123/71
[2017-02-07] VITALS (7 sets, daily range): BP systolic 116–140; BP diastolic 46–68
[2017-02-07 01:28] LABS: GLUCOSE,POINT OF CARE 191 MG/DL (70-110)
[2017-02-07] MEDS: INSULIN ASPART 100 UNITS/ML SQ PRN ×3 (06:15→21:20)
[2017-02-07] MEDS: SODIUM CHLORIDE 0.45% 1,000 ML IV SCH ×2 (06:15→21:48)
[2017-02-07 06:45] LABS: BASOPHILS # (AUTO) 0.01 K/uL (0.00-0.20); BASOPHILS % (AUTO) 0.1 % (0.0-2.0); EOSINOPHILS # (AUTO) 0.18 K/uL (0.00-0.70); EOSINOPHILS % (AUTO) 2.68 % (1.0-6.0); HEMATOCRIT 26.6 % (36-46); HEMOGLOBIN 9.1 g/dL (12.0-16.0); LYMPHOCYTES # (AUTO) 1.1 K/uL (1.0-4.8); LYMPHOCYTES % (AUTO) 15.7 % (22.0-44.0); MEAN CORPUSCULAR HEMOGLOBIN 31.9 pg (26.0-34.0); MEAN CORPUSCULAR HGB CONC 34.3 G/dL (31.0-37.0); MEAN CORPUSCULAR VOLUME 93 fL (80-100); MONOCYTES # (AUTO) 0.4 K/uL (0.1-1.0); MONOCYTES % (AUTO) 6.5 % (2.0-9.0); NEUTROPHILS # (AUTO) 5.1 K/uL (1.8-7.7); NEUTROPHILS % (AUTO) 75.1 % (40.0-70.0); PLATELET COUNT (AUTO) 133 K/uL (150-450); RED BLOOD CELL COUNT(AUTO) 2.87 MIL/uL (4.00-5.20); RED CELL DISTRIBUTION WIDTH 13.6 % (11.5-14.5); WHITE BLOOD COUNT (AUTO) 6.9 K/uL (4.5-11.0)
[2017-02-07 06:57] LABS: GLUCOSE,POINT OF CARE 145 MG/DL (70-110)
[2017-02-07 07:20] LABS: CALCIUM, TOTAL 8.4 mg/dL (8.8-10.5); CREATININE 1.07 mg/dL (0.60-1.30)
[2017-02-07] MEDS: VANCOMYCIN HCL 750 MG in DEXTROSE 5%-WATER 150 ML IV SCH (08:23)
[2017-02-07] MEDS: FOLIC ACID 0.4 MG TABLET PO SCH (08:25)
[2017-02-07] MEDS: FAMOTIDINE 20 MG TABLET PO SCH ×2 (08:25→20:56)
[2017-02-07] MEDS: AmLODIPine BESYLATE 10 MG TABLET PO SCH (08:25)
[2017-02-07] MEDS: ASPIRIN 81 MG CHEWABLE TABLET PO SCH (08:25)
[2017-02-07] MEDS: HydrALAZINE HCL 50 MG TABLET PO SCH ×3 (08:25→20:56)
[2017-02-07] MEDS: HEPARIN SODIUM,PORCINE 5,000 UNITS/ML VIAL SQ SCH ×3 (08:26→20:56)
[2017-02-07 11:32] LABS: GLUCOSE COMMENT 1 Received Meds; GLUCOSE,POINT OF CARE 252 MG/DL (70-110)
[2017-02-07 13:56] LABS: ORGANISM ID Not indicated.
[2017-02-07 18:22] LABS: GLUCOSE,POINT OF CARE 110 MG/DL (70-110)
[2017-02-07] MEDS: CefTRIAXone 1 GM/DEXTROSE 50 ML IV SCH (21:28)
[2017-02-08] VITALS (7 sets, daily range): BP systolic 110–138; BP diastolic 42–63
[2017-02-08 04:26] LABS: GLUCOSE COMMENT 1 Received Meds; GLUCOSE,POINT OF CARE 228 MG/DL (70-110)
[2017-02-08] MEDS: INSULIN ASPART 100 UNITS/ML SQ PRN ×3 (05:45→17:44)
[2017-02-08 06:49] LABS: CALCIUM, TOTAL 8.4 mg/dL (8.8-10.5); CREATININE 1.07 mg/dL (0.60-1.30); POTASSIUM 4.1 mmol/L (3.5-5.1)
[2017-02-08 07:07] LABS: GLUCOSE COMMENT 1 Received Meds; GLUCOSE,POINT OF CARE 175 MG/DL (70-110)
[2017-02-08] MEDS: VANCOMYCIN HCL 750 MG in DEXTROSE 5%-WATER 150 ML IV SCH (08:11)
[2017-02-08] MEDS: FOLIC ACID 0.4 MG TABLET PO SCH (08:11)
[2017-02-08] MEDS: HydrALAZINE HCL 50 MG TABLET PO SCH ×3 (08:12→20:52)
[2017-02-08] MEDS: AmLODIPine BESYLATE 10 MG TABLET PO SCH (08:12)
[2017-02-08] MEDS: ASPIRIN 81 MG CHEWABLE TABLET PO SCH (08:12)
[2017-02-08] MEDS: FAMOTIDINE 20 MG TABLET PO SCH ×2 (08:12→20:52)
[2017-02-08] MEDS: HEPARIN SODIUM,PORCINE 5,000 UNITS/ML VIAL SQ SCH ×3 (08:12→20:52)
[2017-02-08 11:57] LABS: GLUCOSE COMMENT 1 Received Meds; GLUCOSE,POINT OF CARE 192 MG/DL (70-110)
[2017-02-08] MEDS: SODIUM CHLORIDE 0.45% 1,000 ML IV SCH (16:43)
[2017-02-08 18:32] LABS: GLUCOSE COMMENT 1 Received Meds; GLUCOSE,POINT OF CARE 223 MG/DL (70-110)
[2017-02-08] MEDS: MAGNESIUM HYDROXIDE SUSPENSION 30 ML UDCUP PO PRN (18:50)
[2017-02-08] MEDS: CefTRIAXone 1 GM/DEXTROSE 50 ML IV SCH (20:53)
[2017-02-09] MEDS: SODIUM CHLORIDE 0.45% 1,000 ML IV SCH ×3 (05:13→21:29)
[2017-02-09] MEDS: INSULIN ASPART 100 UNITS/ML SQ PRN ×4 (05:16→20:53)
[2017-02-09 05:40] VITALS: BP 122/55
[2017-02-09 07:07] LABS: CALCIUM, TOTAL 8.4 mg/dL (8.8-10.5); CREATININE 1.12 mg/dL (0.60-1.30); POTASSIUM 4.3 mmol/L (3.5-5.1)
[2017-02-09 07:13] VITALS: BP 125/53
[2017-02-09] MEDS ORDERED: VANCOMYCIN HCL 1 GM/D5% WATER 200 ML IV SCH (08:00)
[2017-02-09 08:17] LABS: GLUCOSE,POINT OF CARE 150 MG/DL (70-110)
[2017-02-09 08:17] LABS: GLUCOSE,POINT OF CARE 171 MG/DL (70-110)
[2017-02-09] MEDS: HydrALAZINE HCL 50 MG TABLET PO SCH ×3 (09:23→20:45)
[2017-02-09] MEDS: FAMOTIDINE 20 MG TABLET PO SCH ×2 (09:23→20:45)
[2017-02-09] MEDS: AmLODIPine BESYLATE 10 MG TABLET PO SCH (09:23)
[2017-02-09] MEDS: ASPIRIN 81 MG CHEWABLE TABLET PO SCH (09:24)
[2017-02-09] MEDS: HEPARIN SODIUM,PORCINE 5,000 UNITS/ML VIAL SQ SCH ×3 (09:24→20:45)
[2017-02-09] MEDS: FOLIC ACID 0.4 MG TABLET PO SCH (09:24)
[2017-02-09 11:50] VITALS: BP 123/54
[2017-02-09 15:12] LABS: GLUCOSE COMMENT 1 Received Meds; GLUCOSE,POINT OF CARE 287 MG/DL (70-110)
[2017-02-09] MEDS: MAGNESIUM HYDROXIDE SUSPENSION 30 ML UDCUP PO PRN (15:21)
[2017-02-09 15:44] VITALS: BP 120/68
[2017-02-09 20:59] VITALS: BP 125/56
[2017-02-09] MEDS ORDERED: INSULIN GLARGINE,HUM.REC.ANLOG 100 UNITS/ML SQ SCH (21:00)
[2017-02-09] MEDS: CefTRIAXone 1 GM/DEXTROSE 50 ML IV SCH (21:29)
[2017-02-10 00:22] VITALS: BP 100/43
[2017-02-10 00:22] LABS: GLUCOSE COMMENT 1 Received Meds; GLUCOSE,POINT OF CARE 169 MG/DL (70-110)
[2017-02-10 00:22] LABS: GLUCOSE,POINT OF CARE 159 MG/DL (70-110)
[2017-02-10 05:17] VITALS: BP 121/59
[2017-02-10 06:42] LABS: GLUCOSE,POINT OF CARE 108 MG/DL (70-110)
[2017-02-10 07:31] LABS: CALCIUM, TOTAL 8.6 mg/dL (8.8-10.5); CREATININE 1.17 mg/dL (0.60-1.30); POTASSIUM 4.6 mmol/L (3.5-5.1)
[2017-02-10 07:35] VITALS: BP 129/60
[2017-02-10] MEDS: ASPIRIN 81 MG CHEWABLE TABLET PO SCH (08:48)
[2017-02-10] MEDS: HydrALAZINE HCL 50 MG TABLET PO SCH ×2 (08:48→16:00)
[2017-02-10] MEDS: AmLODIPine BESYLATE 10 MG TABLET PO SCH ×2 (08:48→12:20)
[2017-02-10] MEDS: FOLIC ACID 0.4 MG TABLET PO SCH (08:48)
[2017-02-10] MEDS: FAMOTIDINE 20 MG TABLET PO SCH (08:48)
[2017-02-10] MEDS: HEPARIN SODIUM,PORCINE 5,000 UNITS/ML VIAL SQ SCH ×2 (08:49→16:00)
[2017-02-10 11:15] VITALS: BP 120/55
[2017-02-10] MEDS: SODIUM CHLORIDE 0.45% 1,000 ML IV SCH (12:32)
[2017-02-10] MEDS: INSULIN ASPART 100 UNITS/ML SQ PRN (12:34)
[2017-02-10 13:42] LABS: GLUCOSE,POINT OF CARE 185 MG/DL (70-110)
[2017-02-10] MEDS ORDERED: CEFTR1IV IV (17:48)
== END 2017-02-10 18:22 | disposition home health service (06) | DRG 871 ==
LOC: EMS 00:18 → 5S 03:18 → 6N 16:23
PROVIDERS: ADMIT Hospitalist; ATTEND Hospitalist
PROC: 0T9B70Z Drainage of Bladder with Drainage Device, Via Natural or Artificial Opening (ICD-10-PCS; principal; 2017-02-05)
DX: A41.9 Sepsis, unspecified organism (principal); J18.9 Pneumonia, unspecified organism; N17.9 Acute kidney failure, unspecified; E11.65 Type 2 diabetes mellitus with hyperglycemia; N39.0 Urinary tract infection, site not specified; I69.354 Hemiplegia and hemiparesis following cerebral infarction affecting left non-dominant side; T82.7XXA Infection and inflammatory reaction due to other cardiac and vascular devices, implants and grafts, initial encounter; F03.90 Unspecified dementia, unspecified severity, without behavioral disturbance, psychotic disturbance, mood disturbance, and anxiety; R51 Headache; I10 Essential (primary) hypertension; I25.10 Atherosclerotic heart disease of native coronary artery without angina pectoris; E78.00 Pure hypercholesterolemia, unspecified; D64.9 Anemia, unspecified; B96.1 Klebsiella pneumoniae [K. pneumoniae] as the cause of diseases classified elsewhere; Z79.899 Other long term (current) drug therapy; Z79.82 Long term (current) use of aspirin; Z95.0 Presence of cardiac pacemaker
CPT/HCPCS: 51702; 70450; 82962; 83036; 85651; 86140; 87040; 87070; 87086; 87205; 87449; 87899; 92610; 93005; 93306; 94640; 96361; 96365; 96368; 96375; 99285; J0456; J0696; J1644; J1815; J2405; J2543; J3370; J7040; J7060

== ENCOUNTER 2017-03-24 19:50 | Inpatient (IN) | payer MEDICARE, OTHER ==
[~2017-03-24] VITALS: Ht 165.1 cm; Wt 56.5 kg
[~2017-03-24 19:50] MED LIST changes: +CEFTR1IV IV
[2017-03-24] MEDS ORDERED: ACETAMINOPHEN 500 MG TABLET PO ONE (20:30)
[2017-03-24 20:37] LABS: GLUCOSE,POINT OF CARE 186 MG/DL (70-110)
[2017-03-24 21:05] LABS: BASOPHILS % (AUTO) 0.6 % (0.0-2.0); EOSINOPHILS % (AUTO) 1.2 % (1.0-6.0); HEMATOCRIT 28.4 % (36-46); HEMOGLOBIN 9.7 g/dL (12.0-16.0); LYMPHOCYTES # (AUTO) 0.5 K/uL (1.0-4.8); LYMPHOCYTES % (AUTO) 9.1 % (22.0-44.0); MEAN CORPUSCULAR HEMOGLOBIN 32.5 pg (26.0-34.0); MEAN CORPUSCULAR HGB CONC 34.1 G/dL (31.0-37.0); MEAN CORPUSCULAR VOLUME 95 fL (80-100); MONOCYTES # (AUTO) 0.4 K/uL (0.1-1.0); MONOCYTES % (AUTO) 6.5 % (2.0-9.0); NEUTROPHILS # (AUTO) 4.8 K/uL (1.8-7.7); NEUTROPHILS % (AUTO) 82.6 % (40.0-70.0); PLATELET COUNT (AUTO) 131 K/uL (150-450); RED BLOOD CELL COUNT(AUTO) 2.98 MIL/uL (4.00-5.20); RED CELL DISTRIBUTION WIDTH 13.8 % (11.5-14.5)
[2017-03-24 21:21] LABS: APPEARANCE,URINE CLEAR (CLEAR); BILIRUBIN,URINE NEGATIVE (NEGATIVE); GLUCOSE, URINE (UA) NEGATIVE (NEGATIVE); KETONES,URINE NEGATIVE (NEGATIVE); LEUKOCYTE ESTERASE ,URINE NEGATIVE (NEGATIVE); NITRATE,URINE NEGATIVE (NEGATIVE); OCCULT BLOOD,URINE SMALL (NEGATIVE); PH,URINE 5.5 (5.0-8.0); PROTEIN,URINE POS 1+ (NEGATIVE); UROBILINOGEN,URINE 0.2 mg/dL (<=1.0)
[2017-03-24 21:21] LABS: ANION GAP 8 mmol/L (8-16); CARBON DIOXIDE 28 mmol/L (22-29); CHLORIDE 104 mmol/L (98-107); GLOMERULAR FILTR. RATE CALC 30 mL/min (>60); GLUCOSE,RANDOM 203 mg/dL (70-110); POTASSIUM 4.2 mmol/L (3.5-5.1); SODIUM SERUM 140 mmol/L (136-145); UREA NITROGEN, BLOOD 42 mg/dL (7-18)
[2017-03-24 21:23] LABS: INR 1.1 (0.9-1.1); PROTHROMBIN TIME 11.2 SEC (9.4-11.6)
[2017-03-24 21:24] LABS: BACTERIA,URINE None Seen /HPF (None Seen); SQUAMOUS EPITHELIAL CELL,UR Few /LPF (None Seen); WBC,URINE None Seen /HPF (0-5)
[2017-03-24 21:29] LABS: LACTIC ACID 1.9 mmol/L (0.4-2.0)
[2017-03-24 21:35] LABS: ALANINE AMINOTRANSFERASE 79 U/L (12-78); ALBUMIN 3.3 g/dL (3.4-5.0); ALKALINE PHOSPHATASE 80 U/L (46-116); ASPARTATE AMINOTRANSFERASE 61 U/L (15-37); BILIRUBIN,TOTAL 0.3 mg/dL (0.1-1.0); CREATINE KINASE, TOTAL 38 U/L (26-192)
[2017-03-24 21:56] LABS: B-TYPE NATRIURETIC PEPTIDE 119 pg/mL (0-100)
[2017-03-24] MEDS ORDERED: 0.9% SODIUM CHLORIDE 10 ML SYRINGE IVP PRN (22:00)
[2017-03-24] MEDS ORDERED: CefTRIAXone 1 GM/DEXTROSE 50 ML IV ONE (22:00)
[2017-03-24] MEDS ORDERED: ACETAMINOPHEN 325 MG TABLET PO PRN (22:00)
[2017-03-24] MEDS ORDERED: AZITHROMYCIN 500 MG/NS 250 ML IV ONE (22:00)
[2017-03-24 22:14] LABS: INFLUENZA TYPE A POSITIVE FOR TYPE A (NEGATIVE); INFLUENZA TYPE B NEGATIVE FOR TYPE B (NEGATIVE)
[2017-03-24 23:59] VITALS: BP 115/61
[2017-03-25 03:29] VITALS: BP 101/47
[2017-03-25] MEDS ORDERED: OxyCODONE HCL/ACETAMINOPHEN 5-325 MG TABLET PO PRN ×2 (06:45)
[2017-03-25] MEDS ORDERED: 0.9% SODIUM CHLORIDE 10 ML SYRINGE IVP PRN (06:45)
[2017-03-25] MEDS ORDERED: OSELTAMIVIR PHOSPHATE 75 MG CAPSULE PO ONE (06:45)
[2017-03-25 07:38] VITALS: BP 108/72
[2017-03-25] MEDS: DOCUSATE SODIUM 100 MG CAPSULE PO SCH ×2 (08:24→20:48)
[2017-03-25] MEDS: FOLIC ACID 0.4 MG TABLET PO SCH (08:24)
[2017-03-25] MEDS: ASPIRIN 81 MG CHEWABLE TABLET PO SCH (08:24)
[2017-03-25] MEDS: OMEPRAZOLE 20 MG CAPSULE PO SCH (08:24)
[2017-03-25] MEDS ORDERED: PANTOPRAZOLE SODIUM 40 MG DR TABLET PO SCH (09:00)
[2017-03-25] MEDS ORDERED: [UNRECOGNIZED DRUG - OTHER] PO SCH (09:00)
[2017-03-25 11:24] VITALS: BP 152/65
[2017-03-25] MEDS: HydrALAZINE HCL 50 MG TABLET PO SCH ×3 (11:48→21:00)
[2017-03-25] MEDS: AmLODIPine BESYLATE 10 MG TABLET PO SCH (11:48)
[2017-03-25 12:33] LABS: GLUCOMETER DEV NAME(LOC) 6N 2D; GLUCOSE,POINT OF CARE 276 MG/DL (70-110)
[2017-03-25] MEDS ORDERED: DEXTROSE 50%-WATER 25 GM/50 ML SYRINGE IVP PRN (14:00)
[2017-03-25 15:35] VITALS: BP 151/48
[2017-03-25] MEDS: AZITHROMYCIN 250 MG TABLET PO SCH (16:22)
[2017-03-25] MEDS: INSULIN ASPART 100 UNITS/ML SQ PRN (17:24)
[2017-03-25 19:31] VITALS: BP 120/44
[2017-03-25] MEDS ORDERED: SODIUM CHLORIDE 0.9% 500 ML IV ONE (20:45)
[2017-03-25] MEDS: OSELTAMIVIR PHOSPHATE 75 MG CAPSULE PO SCH (20:48)
[2017-03-25 21:43] LABS: GLUCOMETER DEV NAME(LOC) 5N 2R; GLUCOSE,POINT OF CARE 157 MG/DL (70-110)
[2017-03-25] MEDS ORDERED: CefTRIAXone 1 GM/DEXTROSE 50 ML IV SCH (22:00)
[2017-03-25 23:18] VITALS: BP 114/43
[2017-03-26 00:42] LABS: GLUCOMETER DEV NAME(LOC) 6N 2D; GLUCOSE,POINT OF CARE 212 MG/DL (70-110)
[2017-03-26 05:36] VITALS: BP 100/57
[2017-03-26 05:58] LABS: GLUCOMETER DEV NAME(LOC) 5N 2R; GLUCOSE,POINT OF CARE 119 MG/DL (70-110)
[2017-03-26 06:43] LABS: BASOPHILS % (AUTO) 0.7 % (0.0-2.0); EOSINOPHILS % (AUTO) 1.8 % (1.0-6.0); HEMATOCRIT 27.4 % (36-46); HEMOGLOBIN 9.4 g/dL (12.0-16.0); LYMPHOCYTES # (AUTO) 1.4 K/uL (1.0-4.8); LYMPHOCYTES % (AUTO) 31.1 % (22.0-44.0); MEAN CORPUSCULAR HEMOGLOBIN 32.8 pg (26.0-34.0); MEAN CORPUSCULAR HGB CONC 34.2 G/dL (31.0-37.0); MEAN CORPUSCULAR VOLUME 96 fL (80-100); MONOCYTES # (AUTO) 0.5 K/uL (0.1-1.0); MONOCYTES % (AUTO) 10.6 % (2.0-9.0); NEUTROPHILS # (AUTO) 2.4 K/uL (1.8-7.7); NEUTROPHILS % (AUTO) 55.8 % (40.0-70.0); PLATELET COUNT (AUTO) 120 K/uL (150-450); RED BLOOD CELL COUNT(AUTO) 2.86 MIL/uL (4.00-5.20); RED CELL DISTRIBUTION WIDTH 13.6 % (11.5-14.5)
[2017-03-26 07:06] LABS: CALCIUM, TOTAL 8.6 mg/dL (8.8-10.5); CREATININE 1.38 mg/dL (0.60-1.30); POTASSIUM 4.1 mmol/L (3.5-5.1)
[2017-03-26 07:40] VITALS: BP 116/41
[2017-03-26] MEDS: ASPIRIN 81 MG CHEWABLE TABLET PO SCH (08:31)
[2017-03-26] MEDS: DOCUSATE SODIUM 100 MG CAPSULE PO SCH ×2 (08:31→19:58)
[2017-03-26] MEDS: OMEPRAZOLE 20 MG CAPSULE PO SCH (08:31)
[2017-03-26] MEDS: FOLIC ACID 0.4 MG TABLET PO SCH (08:32)
[2017-03-26] MEDS: OSELTAMIVIR PHOSPHATE 75 MG CAPSULE PO SCH ×2 (08:33→19:58)
[2017-03-26] MEDS: AZITHROMYCIN 250 MG TABLET PO SCH (08:33)
[2017-03-26] MEDS: HydrALAZINE HCL 50 MG TABLET PO SCH ×3 (11:42→19:58)
[2017-03-26] MEDS: AmLODIPine BESYLATE 10 MG TABLET PO SCH (11:42)
[2017-03-26 11:54] VITALS: BP 138/61
[2017-03-26 11:57] LABS: GLUCOMETER DEV NAME(LOC) 6N 2D; GLUCOSE,POINT OF CARE 192 MG/DL (70-110)
[2017-03-26] MEDS: INSULIN ASPART 100 UNITS/ML SQ PRN ×3 (12:09→20:27)
[2017-03-26 15:30] VITALS: BP 126/53
[2017-03-26 17:53] LABS: GLUCOMETER DEV NAME(LOC) 6N 2D; GLUCOSE,POINT OF CARE 166 MG/DL (70-110)
[2017-03-26 20:03] VITALS: BP 151/59
[2017-03-26] MEDS ORDERED: CefTRIAXone SODIUM 1 GM/VIAL IVP SCH (22:00)
[2017-03-26 23:45] VITALS: BP 128/50
[2017-03-27 04:00] VITALS: BP 124/58
[2017-03-27 05:58] LABS: GLUCOMETER DEV NAME(LOC) 6N 2D; GLUCOSE,POINT OF CARE 169 MG/DL (70-110)
[2017-03-27] MEDS: INSULIN ASPART 100 UNITS/ML SQ PRN ×2 (06:04→14:10)
[2017-03-27 07:03] LABS: GLUCOMETER DEV NAME(LOC) 6N 1E; GLUCOSE,POINT OF CARE 157 MG/DL (70-110)
[2017-03-27 08:38] VITALS: BP 140/55
[2017-03-27] MEDS: OMEPRAZOLE 20 MG CAPSULE PO SCH (09:33)
[2017-03-27] MEDS: OSELTAMIVIR PHOSPHATE 75 MG CAPSULE PO SCH (09:33)
[2017-03-27] MEDS: DOCUSATE SODIUM 100 MG CAPSULE PO SCH (09:33)
[2017-03-27] MEDS: AZITHROMYCIN 250 MG TABLET PO SCH (09:33)
[2017-03-27] MEDS: FOLIC ACID 0.4 MG TABLET PO SCH (09:34)
[2017-03-27] MEDS: AmLODIPine BESYLATE 10 MG TABLET PO SCH (09:34)
[2017-03-27] MEDS: HydrALAZINE HCL 50 MG TABLET PO SCH (09:34)
[2017-03-27] MEDS: ASPIRIN 81 MG CHEWABLE TABLET PO SCH (09:34)
[2017-03-27 12:08] VITALS: BP 114/54
[2017-03-27 13:13] LABS: GLUCOMETER DEV NAME(LOC) 6N 2D; GLUCOSE,POINT OF CARE 198 MG/DL (70-110)
[2017-03-27] MEDS ORDERED: LEVO500 PO (13:41)
[2017-03-27] MEDS ORDERED: OSEL75 PO (13:42)
== END 2017-03-27 15:20 | disposition home or self-care (01) | DRG 682 ==
LOC: EMS 19:52 → 6N 23:39
PROVIDERS: ADMIT Internal Medicine; ATTEND Internal Medicine
DX: N17.9 Acute kidney failure, unspecified (principal); J10.00 Influenza due to other identified influenza virus with unspecified type of pneumonia; E44.0 Moderate protein-calorie malnutrition; E11.22 Type 2 diabetes mellitus with diabetic chronic kidney disease; F03.90 Unspecified dementia, unspecified severity, without behavioral disturbance, psychotic disturbance, mood disturbance, and anxiety; D64.9 Anemia, unspecified; N18.9 Chronic kidney disease, unspecified; I25.10 Atherosclerotic heart disease of native coronary artery without angina pectoris; I12.9 Hypertensive chronic kidney disease with stage 1 through stage 4 chronic kidney disease, or unspecified chronic kidney disease; E78.00 Pure hypercholesterolemia, unspecified; Z68.20 Body mass index [BMI] 20.0-20.9, adult; Z95.0 Presence of cardiac pacemaker; Z79.82 Long term (current) use of aspirin; Z79.899 Other long term (current) drug therapy; Z86.73 Personal history of transient ischemic attack (TIA), and cerebral infarction without residual deficits
CPT/HCPCS: 82962; 83605; 87040; 87804; 93005; 96365; 96368; 99285; J0456; J0696; J7040

== ENCOUNTER 2017-09-06 13:06 | Emergency (ER) | payer MEDICARE, OTHER ==
[~2017-09-06] VITALS: Ht 160 cm; Wt 61.4 kg
[~2017-09-06 13:06] MED LIST changes: -CEFTR1IV IV; +LEVO500 PO; +OSEL75 PO
[2017-09-06 14:36] LABS: BASOPHILS % (AUTO) 0.6 % (0.0-2.0); EOSINOPHILS % (AUTO) 2.7 % (1.0-6.0); HEMATOCRIT 27.6 % (36-46); HEMOGLOBIN 9.6 g/dL (12.0-16.0); LYMPHOCYTES # (AUTO) 1.4 K/uL (1.0-4.8); LYMPHOCYTES % (AUTO) 17.9 % (22.0-44.0); MEAN CORPUSCULAR HEMOGLOBIN 32.8 pg (26.0-34.0); MEAN CORPUSCULAR HGB CONC 34.9 G/dL (31.0-37.0); MEAN CORPUSCULAR VOLUME 94 fL (80-100); MONOCYTES # (AUTO) 0.4 K/uL (0.1-1.0); MONOCYTES % (AUTO) 5.7 % (2.0-9.0); NEUTROPHILS # (AUTO) 5.7 K/uL (1.8-7.7); NEUTROPHILS % (AUTO) 73.1 % (40.0-70.0); PLATELET COUNT (AUTO) 151 K/uL (150-450); RED BLOOD CELL COUNT(AUTO) 2.94 MIL/uL (4.00-5.20)
[2017-09-06 14:47] LABS: CALCIUM, TOTAL 8.7 mg/dL (8.8-10.5); CREATININE 1.21 mg/dL (0.60-1.30); POTASSIUM 5.3 mmol/L (3.5-5.1)
[2017-09-06 14:53] LABS: ALBUMIN 2.8 g/dL (3.4-5.0); BILIRUBIN,TOTAL 0.2 mg/dL (0.1-1.0); TOTAL PROTEIN, SERUM 6.3 g/dL (6.4-8.2)
[2017-09-06 15:13] LABS: APPEARANCE,URINE CLOUDY (CLEAR); BILIRUBIN,URINE NEGATIVE (NEGATIVE); GLUCOSE, URINE (UA) NEGATIVE (NEGATIVE); KETONES,URINE NEGATIVE (NEGATIVE); LEUKOCYTE ESTERASE ,URINE MODERATE (NEGATIVE); NITRATE,URINE NEGATIVE (NEGATIVE); OCCULT BLOOD,URINE TRACE (NEGATIVE); PROTEIN,URINE NEGATIVE (NEGATIVE); UROBILINOGEN,URINE 0.2 mg/dL (<=1.0)
[2017-09-06 15:16] LABS: GLUCOSE,POINT OF CARE 197 MG/DL (70-110)
[2017-09-06 15:52] LABS: BACTERIA,URINE Many /HPF (None Seen)
[2017-09-06 15:53] LABS: SQUAMOUS EPITHELIAL CELL,UR Few /LPF (None Seen)
[2017-09-06 16:16] VITALS: BP 140/52
== END 2017-09-06 16:18 | disposition home or self-care (01) ==
LOC: EMS 13:07
DX: N39.0 Urinary tract infection, site not specified (principal); D64.9 Anemia, unspecified; I10 Essential (primary) hypertension; E11.9 Type 2 diabetes mellitus without complications; E78.00 Pure hypercholesterolemia, unspecified; F03.90 Unspecified dementia, unspecified severity, without behavioral disturbance, psychotic disturbance, mood disturbance, and anxiety; I25.10 Atherosclerotic heart disease of native coronary artery without angina pectoris; Z79.899 Other long term (current) drug therapy; Z79.2 Long term (current) use of antibiotics; Z79.82 Long term (current) use of aspirin
CPT/HCPCS: 82948; 87086; 93005; 99285

== ENCOUNTER 2017-10-04 02:57 | Inpatient (IN) | payer MEDICARE, OTHER ==
[~2017-10-04] VITALS: Ht 162.6 cm; Wt 56.5 kg
[~2017-10-04 02:57] MED LIST changes: -ASPI81 PO; +CARV25 PO; +CITA-106 PO; +CYAN500 PO; +FERR-89 PO; +GABA-531 PO; +GLIP5 PO; -HYDR-2924 PO; +LISI-660 PO; +LOVA20 PO; -OSEL75 PO; -VIT1TABL66 PO
[2017-10-04] MEDS ORDERED: AMOX1TAB16 PO (03:05)
[2017-10-04] MEDS ORDERED: ALBU8HFA IH (03:06)
[2017-10-04 03:10] LABS: GLUCOSE,POINT OF CARE 373 MG/DL (70-110)
[2017-10-04] MEDS ORDERED: SODIUM CHLORIDE 0.9% 500 ML IV ONE ×2 (03:45)
[2017-10-04 03:58] LABS: BASOPHILS % (AUTO) 0.5 % (0.0-2.0); HEMATOCRIT 26.6 % (36-46); HEMOGLOBIN 9.3 g/dL (12.0-16.0); LYMPHOCYTES # (AUTO) 1.2 K/uL (1.0-4.8); LYMPHOCYTES % (AUTO) 13.1 % (22.0-44.0); MEAN CORPUSCULAR HGB CONC 34.9 G/dL (31.0-37.0); MEAN CORPUSCULAR VOLUME 95 fL (80-100); MONOCYTES # (AUTO) 0.6 K/uL (0.1-1.0); MONOCYTES % (AUTO) 6.6 % (2.0-9.0); NEUTROPHILS # (AUTO) 7.5 K/uL (1.8-7.7); NEUTROPHILS % (AUTO) 77.8 % (40.0-70.0); PLATELET COUNT (AUTO) 145 K/uL (150-450); RED BLOOD CELL COUNT(AUTO) 2.81 MIL/uL (4.00-5.20); RED CELL DISTRIBUTION WIDTH 13.9 % (11.5-14.5)
[2017-10-04 04:01] LABS: APPEARANCE,URINE CLOUDY (CLEAR); BILIRUBIN,URINE NEGATIVE (NEGATIVE); GLUCOSE, URINE (UA) 100 mg/dL (NEGATIVE); KETONES,URINE NEGATIVE (NEGATIVE); LEUKOCYTE ESTERASE ,URINE LARGE (NEGATIVE); NITRATE,URINE NEGATIVE (NEGATIVE); OCCULT BLOOD,URINE LARGE (NEGATIVE); PH,URINE 8.5 (5.0-8.0); PROTEIN,URINE SEE CONFIRM (NEGATIVE); UROBILINOGEN,URINE 0.2 mg/dL (<=1.0)
[2017-10-04 04:08] LABS: RBC,URINE >100 /HPF (0-2)
[2017-10-04 04:09] LABS: BACTERIA,URINE Many /HPF (None Seen)
[2017-10-04 04:12] LABS: SULFOSALICYLIC ACID,URINE 4+ (Negative)
[2017-10-04] MEDS ORDERED: IPRATROPIUM BROMIDE 0.5 MG/2.5 ML NEB SOLUTION NEB ONE (04:15)
[2017-10-04] MEDS ORDERED: ALBUTEROL SULFATE 2.5 MG/0.5 ML NEB SOLUTION NEB ONE (04:15)
[2017-10-04] MEDS ORDERED: ACETAMINOPHEN 500 MG TABLET PO ONE (04:15)
[2017-10-04 04:16] LABS: ANION GAP 9 mmol/L (8-16); CARBON DIOXIDE 23 mmol/L (22-29); CHLORIDE 107 mmol/L (98-107); POTASSIUM 4.8 mmol/L (3.5-5.1); SODIUM SERUM 139 mmol/L (136-145)
[2017-10-04 04:17] LABS: GLUCOSE,RANDOM 416 mg/dL (70-110); UREA NITROGEN, BLOOD 66 mg/dL (7-18)
[2017-10-04 04:18] LABS: ALANINE AMINOTRANSFERASE 20 U/L (12-78); ALBUMIN 2.8 g/dL (3.4-5.0); ALKALINE PHOSPHATASE 66 U/L (46-116); ASPARTATE AMINOTRANSFERASE 20 U/L (15-37); BILIRUBIN,TOTAL 0.3 mg/dL (0.1-1.0); CALCIUM, TOTAL 8.7 mg/dL (8.8-10.5); CREATININE 1.81 mg/dL (0.60-1.30); GLOMERULAR FILTR. RATE CALC 26 mL/min (>60); TOTAL PROTEIN, SERUM 6.2 g/dL (6.4-8.2)
[2017-10-04 04:21] LABS: LACTIC ACID 2.3 mmol/L (0.4-2.0)
[2017-10-04] MEDS ORDERED: CefTRIAXone SODIUM 1 GM in DEXTROSE 5%-WATER 10 ML IV ONE (04:30)
[2017-10-04] MEDS ORDERED: ACETAMINOPHEN 325 MG TABLET PO PRN ×2 (05:15→09:30)
[2017-10-04] MEDS ORDERED: 0.9% SODIUM CHLORIDE 10 ML SYRINGE IVP PRN (05:15)
[2017-10-04] MEDS ORDERED: ONDANSETRON HCL 4 MG/2 ML VIAL IVP PRN (05:15)
[2017-10-04 07:23] LABS: GLUCOSE,POINT OF CARE 355 MG/DL (70-110)
[2017-10-04] MEDS: ALBUTEROL SULFATE 2.5 MG/0.5 ML NEB SOLUTION NEB SCH ×3 (07:39→15:50)
[2017-10-04] MEDS: IPRATROPIUM BROMIDE 0.5 MG/2.5 ML NEB SOLUTION NEB SCH ×3 (07:39→15:50)
[2017-10-04] MEDS ORDERED: SODIUM CHLORIDE 0.9% 1,000 ML IV ONE (09:30)
[2017-10-04] MEDS ORDERED: ALBUTEROL SULFATE 2.5 MG/0.5 ML NEB SOLUTION NEB PRN (09:30)
[2017-10-04] MEDS ORDERED: BISACODYL 10 MG RECTAL RECTAL SUPPOSITORY PR PRN (09:30)
[2017-10-04] MEDS ORDERED: DEXTROSE 50%-WATER 25 GM/50 ML SYRINGE IVP PRN (09:30)
[2017-10-04] MEDS: HEPARIN SODIUM,PORCINE 5,000 UNITS/ML VIAL SQ SCH ×2 (10:25→20:21)
[2017-10-04 17:08] VITALS: BP 126/79
[2017-10-04] MEDS ORDERED: SODIUM CHLORIDE 0.9% 250 ML IV ONE (18:42)
[2017-10-04 19:58] VITALS: BP 128/92
[2017-10-04] MEDS: DOCUSATE SODIUM 100 MG CAPSULE PO SCH (20:21)
[2017-10-04] MEDS: INSULIN LISPRO 100 UNITS/ML SQ PRN (20:22)
[2017-10-04 20:43] LABS: GLUCOMETER DEV NAME(LOC) 5N 1P; GLUCOSE,POINT OF CARE 275 MG/DL (70-110)
[2017-10-04 20:44] LABS: GLUCOMETER DEV NAME(LOC) 5N 1P; GLUCOSE,POINT OF CARE 250 MG/DL (70-110)
[2017-10-05] VITALS (7 sets, daily range): BP systolic 120–161; BP diastolic 50–81
[2017-10-05] MEDS: CefTRIAXone SODIUM 1 GM in DEXTROSE 5%-WATER 10 ML IV SCH (05:06)
[2017-10-05 06:52] LABS: CALCIUM, TOTAL 8.7 mg/dL (8.8-10.5); CREATININE 1.1 mg/dL (0.60-1.30)
[2017-10-05 07:34] LABS: GLUCOMETER DEV NAME(LOC) 5N 1P; GLUCOSE,POINT OF CARE 166 MG/DL (70-110)
[2017-10-05] MEDS: ASPIRIN 81 MG CHEWABLE TABLET PO SCH (07:38)
[2017-10-05] MEDS: PANTOPRAZOLE SODIUM 40 MG DR TABLET PO SCH (07:38)
[2017-10-05] MEDS: DOCUSATE SODIUM 100 MG CAPSULE PO SCH ×2 (07:38→20:23)
[2017-10-05] MEDS: HEPARIN SODIUM,PORCINE 5,000 UNITS/ML VIAL SQ SCH ×2 (08:36→20:23)
[2017-10-05] MEDS: INSULIN LISPRO 100 UNITS/ML SQ PRN ×3 (12:02→20:27)
[2017-10-06 05:01] VITALS: BP 118/51
[2017-10-06] MEDS: CefTRIAXone SODIUM 1 GM in DEXTROSE 5%-WATER 10 ML IV SCH (05:50)
[2017-10-06] MEDS: INSULIN LISPRO 100 UNITS/ML SQ PRN ×4 (05:58→21:05)
[2017-10-06 07:06] VITALS: BP 144/58
[2017-10-06] MEDS: ASPIRIN 81 MG CHEWABLE TABLET PO SCH (08:05)
[2017-10-06] MEDS: HEPARIN SODIUM,PORCINE 5,000 UNITS/ML VIAL SQ SCH ×2 (08:05→21:02)
[2017-10-06] MEDS: PANTOPRAZOLE SODIUM 40 MG DR TABLET PO SCH (08:05)
[2017-10-06] MEDS: DOCUSATE SODIUM 100 MG CAPSULE PO SCH ×2 (08:05→21:02)
[2017-10-06 10:39] LABS: GLUCOMETER DEV NAME(LOC) 5N 1P; GLUCOSE,POINT OF CARE 208 MG/DL (70-110)
[2017-10-06 10:39] LABS: GLUCOMETER DEV NAME(LOC) 5N 1P; GLUCOSE,POINT OF CARE 215 MG/DL (70-110)
[2017-10-06 10:39] LABS: GLUCOMETER DEV NAME(LOC) 5N 1P; GLUCOSE,POINT OF CARE 212 MG/DL (70-110)
[2017-10-06 10:54] VITALS: BP 127/50
[2017-10-06 12:25] LABS: BASOPHILS % (AUTO) 0.9 % (0.0-2.0); EOSINOPHILS % (AUTO) 2.5 % (1.0-6.0); HEMATOCRIT 26.4 % (36-46); HEMOGLOBIN 9.1 g/dL (12.0-16.0); LYMPHOCYTES % (AUTO) 17.4 % (22.0-44.0); MEAN CORPUSCULAR HEMOGLOBIN 32.5 pg (26.0-34.0); MEAN CORPUSCULAR HGB CONC 34.7 G/dL (31.0-37.0); MEAN CORPUSCULAR VOLUME 94 fL (80-100); MONOCYTES # (AUTO) 0.4 K/uL (0.1-1.0); MONOCYTES % (AUTO) 7.9 % (2.0-9.0); NEUTROPHILS % (AUTO) 71.3 % (40.0-70.0); PLATELET COUNT (AUTO) 132 K/uL (150-450); RED BLOOD CELL COUNT(AUTO) 2.82 MIL/uL (4.00-5.20); RED CELL DISTRIBUTION WIDTH 13.9 % (11.5-14.5)
[2017-10-06 15:19] VITALS: BP 142/71
[2017-10-06 19:28] VITALS: BP 146/44
[2017-10-06 23:49] LABS: GLUCOMETER DEV NAME(LOC) 5N 1P; GLUCOSE,POINT OF CARE 205 MG/DL (70-110)
[2017-10-06 23:49] LABS: GLUCOMETER DEV NAME(LOC) 5N 1P; GLUCOSE,POINT OF CARE 231 MG/DL (70-110)
[2017-10-07 00:16] VITALS: BP 119/51
[2017-10-07 04:14] VITALS: BP 145/89
[2017-10-07] MEDS: CefTRIAXone SODIUM 1 GM in DEXTROSE 5%-WATER 10 ML IV SCH (04:46)
[2017-10-07 07:08] LABS: CALCIUM, TOTAL 8.8 mg/dL (8.8-10.5); CREATININE 1.06 mg/dL (0.60-1.30); POTASSIUM 4.5 mmol/L (3.5-5.1)
[2017-10-07 07:21] VITALS: BP 160/90
[2017-10-07] MEDS: ASPIRIN 81 MG CHEWABLE TABLET PO SCH (08:37)
[2017-10-07] MEDS: PANTOPRAZOLE SODIUM 40 MG DR TABLET PO SCH (08:37)
[2017-10-07] MEDS: DOCUSATE SODIUM 100 MG CAPSULE PO SCH (08:37)
[2017-10-07] MEDS: HEPARIN SODIUM,PORCINE 5,000 UNITS/ML VIAL SQ SCH (08:37)
[2017-10-07 11:04] VITALS: BP 114/47
[2017-10-07] MEDS: INSULIN LISPRO 100 UNITS/ML SQ PRN ×2 (12:01→17:13)
[2017-10-07 15:28] VITALS: BP 124/49
[2017-10-07] MEDS ORDERED: CEPH500 PO (16:12)
[2017-10-07 18:14] LABS: GLUCOMETER DEV NAME(LOC) 5N 2S; GLUCOSE,POINT OF CARE 165 MG/DL (70-110)
[2017-10-07 18:14] LABS: GLUCOMETER DEV NAME(LOC) 5N 2S; GLUCOSE,POINT OF CARE 227 MG/DL (70-110)
[2017-10-07 20:08] LABS: GLUCOMETER DEV NAME(LOC) 5N 1P; GLUCOSE,POINT OF CARE 266 MG/DL (70-110)
[2017-10-07 20:08] LABS: GLUCOMETER DEV NAME(LOC) 5N 1P; GLUCOSE,POINT OF CARE 66 MG/DL (70-110)
[2017-10-07 20:08] LABS: GLUCOMETER DEV NAME(LOC) 5N 1P; GLUCOSE,POINT OF CARE 188 MG/DL (70-110)
[2017-10-07 20:08] LABS: GLUCOMETER DEV NAME(LOC) 5N 1P; GLUCOSE,POINT OF CARE 283 MG/DL (70-110)
== END 2017-10-07 18:50 | disposition home health service (06) | DRG 91 ==
LOC: EMS 02:58 → 5N 15:28
PROVIDERS: ADMIT Internal Medicine; ATTEND Internal Medicine
PROC: 0T9B70Z Drainage of Bladder with Drainage Device, Via Natural or Artificial Opening (ICD-10-PCS; principal; 2017-10-04)
DX: G92 Toxic encephalopathy (principal); E43 Unspecified severe protein-calorie malnutrition; J18.0 Bronchopneumonia, unspecified organism; N17.9 Acute kidney failure, unspecified; N39.0 Urinary tract infection, site not specified; E11.65 Type 2 diabetes mellitus with hyperglycemia; F03.90 Unspecified dementia, unspecified severity, without behavioral disturbance, psychotic disturbance, mood disturbance, and anxiety; I25.10 Atherosclerotic heart disease of native coronary artery without angina pectoris; E78.00 Pure hypercholesterolemia, unspecified; D63.8 Anemia in other chronic diseases classified elsewhere; E86.0 Dehydration; Z68.21 Body mass index [BMI] 21.0-21.9, adult; I10 Essential (primary) hypertension; Z79.899 Other long term (current) drug therapy; Z95.0 Presence of cardiac pacemaker; Z79.2 Long term (current) use of antibiotics; Z79.84 Long term (current) use of oral hypoglycemic drugs; Z66 Do not resuscitate
CPT/HCPCS: 51702; 83605; 87040; 87081; 87086; 92610; 93005; 94640; 96365; 96366; 96372; 97110; 97140; 97161; 97535; 99285; J0696; J1644; J7030; J7050; J7060

== ENCOUNTER 2017-11-07 13:37 | Emergency (ER) | payer MEDICARE, OTHER ==
[~2017-11-07] VITALS: Ht 160 cm; Wt 72.7 kg
[~2017-11-07 13:37] MED LIST changes: +ALBU8HFA IH; +CEPH500 PO; -LEVO500 PO
[2017-11-07 14:08] LABS: BASOPHILS % (AUTO) 0.6 % (0.0-2.0); EOSINOPHILS % (AUTO) 1.9 % (1.0-6.0); HEMATOCRIT 27.4 % (36-46); HEMOGLOBIN 9.4 g/dL (12.0-16.0); LYMPHOCYTES # (AUTO) 1.3 K/uL (1.0-4.8); LYMPHOCYTES % (AUTO) 17.6 % (22.0-44.0); MEAN CORPUSCULAR HEMOGLOBIN 33.1 pg (26.0-34.0); MEAN CORPUSCULAR HGB CONC 34.2 G/dL (31.0-37.0); MEAN CORPUSCULAR VOLUME 97 fL (80-100); MONOCYTES # (AUTO) 0.4 K/uL (0.1-1.0); MONOCYTES % (AUTO) 5.9 % (2.0-9.0); NEUTROPHILS # (AUTO) 5.4 K/uL (1.8-7.7); PLATELET COUNT (AUTO) 141 K/uL (150-450); RED BLOOD CELL COUNT(AUTO) 2.84 MIL/uL (4.00-5.20); RED CELL DISTRIBUTION WIDTH 13.8 % (11.5-14.5)
[2017-11-07 14:21] LABS: ANION GAP 9 mmol/L (8-16); CALCIUM, TOTAL 8.8 mg/dL (8.8-10.5); CARBON DIOXIDE 25 mmol/L (22-29); CHLORIDE 105 mmol/L (98-107); CREATININE 1.32 mg/dL (0.60-1.30); GLOMERULAR FILTR. RATE CALC 38 mL/min (>60); GLUCOSE,RANDOM 227 mg/dL (70-110); POTASSIUM 4.8 mmol/L (3.5-5.1); SODIUM SERUM 139 mmol/L (136-145); UREA NITROGEN, BLOOD 54 mg/dL (7-18)
[2017-11-07 14:27] LABS: ALANINE AMINOTRANSFERASE 16 U/L (12-78); ALBUMIN 2.8 g/dL (3.4-5.0); ALKALINE PHOSPHATASE 74 U/L (46-116); ASPARTATE AMINOTRANSFERASE 15 U/L (15-37); BILIRUBIN,TOTAL 0.2 mg/dL (0.1-1.0); LIPASE 148 U/L (73-393); TOTAL PROTEIN, SERUM 6.4 g/dL (6.4-8.2)
[2017-11-07 14:28] LABS: B-TYPE NATRIURETIC PEPTIDE 53 pg/mL (0-100)
[2017-11-07 14:29] LABS: AMMONIA 15 umol/L (11-32); TROPONIN I < 0.02 ng/mL (0.00-0.05)
[2017-11-07] MEDS ORDERED: SODIUM CHLORIDE 0.9% 1,000 ML IV ONE (14:30)
[2017-11-07 14:34] LABS: ABG A-A DIFF O2 22.7 mmHg (10-20.0); ABG BASE EXCESS -6.2 mmol/L (-2.0-3.0); ABG CARBOXYHEMOGLOBIN 0.2 % (0.0-1.5); ABG HCO3 19.8 mmol/L (22.0-26.0); ABG METHEMOGLOBIN 0.2 % (0.0-1.5); ABG OXYGEN CONTENT 12.9 mL/dL (15.0-23.0); ABG OXYGEN SATURATION 95.8 % (95.0-98.0); ABG OXYHEMOGLOBIN 95.4 % (94.0-100.0); ABG PCO2 36 mmHg (35-45); ABG PH 7.351 (7.35-7.450); ABG TOTAL HEMOGLOBIN 9.5 G/dL (12.0-18.0); PO2, ARTERIAL BG 83.9 mmHg (71.0-79.0); SOURCE, BLOOD GAS ARTERIAL
[2017-11-07 14:41] LABS: APPEARANCE,URINE CLEAR (CLEAR); BILIRUBIN,URINE NEGATIVE (NEGATIVE); GLUCOSE, URINE (UA) NEGATIVE (NEGATIVE); KETONES,URINE NEGATIVE (NEGATIVE); LEUKOCYTE ESTERASE ,URINE NEGATIVE (NEGATIVE); NITRATE,URINE NEGATIVE (NEGATIVE); OCCULT BLOOD,URINE NEGATIVE (NEGATIVE); PROTEIN,URINE NEGATIVE (NEGATIVE); UROBILINOGEN,URINE 0.2 mg/dL (<=1.0)
[2017-11-07 14:45] LABS: BACTERIA,URINE Few /HPF (None Seen); RBC,URINE None Seen /HPF (0-2); SQUAMOUS EPITHELIAL CELL,UR Few /LPF (None Seen); WBC,URINE 0-2 /HPF (0-5)
[2017-11-07 14:45] LABS: SITE, BLOOD GAS RT RADIAL
[2017-11-07 15:10] LABS: LACTIC ACID 2.1 mmol/L (0.4-2.0)
[2017-11-07 20:03] VITALS: BP 116/52
== END 2017-11-07 20:03 | disposition home or self-care (01) ==
LOC: EMS 13:39
DX: E86.0 Dehydration (principal); I10 Essential (primary) hypertension; E11.9 Type 2 diabetes mellitus without complications; E78.00 Pure hypercholesterolemia, unspecified; I25.10 Atherosclerotic heart disease of native coronary artery without angina pectoris; Z79.899 Other long term (current) drug therapy
CPT/HCPCS: 36415; 70450; 71045; 80053; 81001; 82140; 82805; 83605; 83690; 83880; 84484; 85025; 87040; 93005; 96360; 96361; 99285; J7030; 51702

== ENCOUNTER 2018-05-12 02:13 | Emergency (ER) | payer MEDICARE, OTHER ==
[~2018-05-12] VITALS: Ht 165.1 cm; Wt 27.4 kg
[~2018-05-12 02:13] MED LIST changes: -CEPH500 PO; +FOLI0.4T14 PO; -FOLI0.4T4 PO
[2018-05-12 03:04] LABS: BASOPHILS % (AUTO) 0.3 % (0.0-2.0); EOSINOPHILS % (AUTO) 0.6 % (1.0-6.0); HEMATOCRIT 31.1 % (36-46); HEMOGLOBIN 10.2 g/dL (12.0-16.0); LYMPHOCYTES % (AUTO) 8.3 % (22.0-44.0); MEAN CORPUSCULAR HEMOGLOBIN 31.6 pg (26.0-34.0); MEAN CORPUSCULAR HGB CONC 32.9 G/dL (31.0-37.0); MEAN CORPUSCULAR VOLUME 96 fL (80-100); MONOCYTES # (AUTO) 0.6 K/uL (0.1-1.0); MONOCYTES % (AUTO) 4.9 % (2.0-9.0); PLATELET COUNT (AUTO) 119 K/uL (150-450); RED BLOOD CELL COUNT(AUTO) 3.24 MIL/uL (4.00-5.20); RED CELL DISTRIBUTION WIDTH 14.1 % (11.5-14.5)
[2018-05-12 03:12] LABS: NEUTROPHILS % (AUTO) 85.9 % (40.0-70.0)
[2018-05-12 03:16] LABS: CREATININE 1.23 mg/dL (0.60-1.30); PROTHROMBIN TIME 10.7 SEC (9.4-11.6)
[2018-05-12 03:22] LABS: ALBUMIN 2.9 g/dL (3.4-5.0); BILIRUBIN,TOTAL 0.4 mg/dL (0.1-1.0); TOTAL PROTEIN, SERUM 6.4 g/dL (6.4-8.2)
[2018-05-12 05:10] VITALS: BP 124/61
== END 2018-05-12 05:41 | disposition home or self-care (01) ==
LOC: EMS 02:13
DX: D64.9 Anemia, unspecified (principal); F03.90 Unspecified dementia, unspecified severity, without behavioral disturbance, psychotic disturbance, mood disturbance, and anxiety; K92.2 Gastrointestinal hemorrhage, unspecified; I25.10 Atherosclerotic heart disease of native coronary artery without angina pectoris; E11.9 Type 2 diabetes mellitus without complications; E78.00 Pure hypercholesterolemia, unspecified; I10 Essential (primary) hypertension; Z95.0 Presence of cardiac pacemaker; Z79.899 Other long term (current) drug therapy
CPT/HCPCS: 82271; 86850; 86900; 86901

== ENCOUNTER 2018-12-09 10:34 | Inpatient (IN) | payer MEDICARE, OTHER ==
[~2018-12-09] VITALS: Ht 152.4 cm; Wt 64.2 kg
[~2018-12-09 10:34] MED LIST changes: -ALBU8HFA IH; -AMLO-512 PO; +ASPI81TA39 PO; +CRAN500T PO; -CYAN500 PO; +CYAN500T65 PO; -GLIP5 PO; -OMEP20 PO
[2018-12-09] MEDS ORDERED: SODIUM CHLORIDE 0.9% 1,000 ML IV ONE (11:00)
[2018-12-09] MEDS ORDERED: HEPA100D17 SQ (11:00)
[2018-12-09] MEDS ORDERED: INSU100V SQ (11:00)
[2018-12-09] MEDS ORDERED: DSS100 PO (11:00)
[2018-12-09] MEDS ORDERED: FLUC100T PO (11:00)
[2018-12-09] MEDS ORDERED: GABA-529 PO (11:00)
[2018-12-09] MEDS ORDERED: FAMO20 PO (11:00)
[2018-12-09 11:19] LABS: BASOPHILS % (AUTO) 1.1 % (0.0-2.0); EOSINOPHILS % (AUTO) 2.7 % (1.0-6.0); HEMATOCRIT 29.2 % (36-46); HEMOGLOBIN 9.9 g/dL (12.0-16.0); LYMPHOCYTES % (AUTO) 15.9 % (22.0-44.0); MEAN CORPUSCULAR HEMOGLOBIN 33.5 pg (26.0-34.0); MEAN CORPUSCULAR HGB CONC 33.7 G/dL (31.0-37.0); MEAN CORPUSCULAR VOLUME 99 fL (80-100); MONOCYTES # (AUTO) 0.6 K/uL (0.1-1.0); MONOCYTES % (AUTO) 8.6 % (2.0-9.0); NEUTROPHILS # (AUTO) 4.6 K/uL (1.8-7.7); NEUTROPHILS % (AUTO) 71.7 % (40.0-70.0); PLATELET COUNT (AUTO) 250 K/uL (150-450); RED BLOOD CELL COUNT(AUTO) 2.95 MIL/uL (4.00-5.20)
[2018-12-09 11:27] LABS: ANION GAP 8 mmol/L (8-16); CALCIUM, TOTAL 8.9 mg/dL (8.8-10.5); CARBON DIOXIDE 29 mmol/L (22-29); CHLORIDE 102 mmol/L (98-107); CREATININE 1.11 mg/dL (0.60-1.30); GLOMERULAR FILTR. RATE CALC 46 mL/min (>60); GLUCOSE,RANDOM 248 mg/dL (70-110); POTASSIUM 5.7 mmol/L (3.5-5.1); SODIUM SERUM 139 mmol/L (136-145); UREA NITROGEN, BLOOD 24 mg/dL (7-18)
[2018-12-09 11:32] LABS: PROTHROMBIN TIME 10.5 SEC (9.4-11.6)
[2018-12-09 11:34] LABS: ALANINE AMINOTRANSFERASE 27 U/L (12-78); ALBUMIN 2.6 g/dL (3.4-5.0); ALKALINE PHOSPHATASE 61 U/L (46-116); ASPARTATE AMINOTRANSFERASE 25 U/L (15-37); BILIRUBIN,TOTAL 0.3 mg/dL (0.1-1.0); CREATINE KINASE, TOTAL ONLY 32 U/L (26-192); LIPASE 108 U/L (73-393); TOTAL PROTEIN, SERUM 6.1 g/dL (6.4-8.2)
[2018-12-09 11:35] LABS: LACTIC ACID 1.2 mmol/L (0.4-2.0)
[2018-12-09 11:40] LABS: ACETAMINOPHEN < 2 mcg/mL (10-30); SALICYLATE 0.9 mg/dL (2.8-20.0)
[2018-12-09 12:30] LABS: INFLUENZA TYPE A NEGATIVE FOR TYPE A (NEGATIVE); INFLUENZA TYPE B NEGATIVE FOR TYPE B (NEGATIVE)
[2018-12-09 12:47] LABS: APPEARANCE,URINE CLEAR (CLEAR); BILIRUBIN,URINE NEGATIVE (NEGATIVE); GLUCOSE, URINE (UA) 100 mg/dL (NEGATIVE); KETONES,URINE NEGATIVE (NEGATIVE); LEUKOCYTE ESTERASE ,URINE NEGATIVE (NEGATIVE); NITRATE,URINE NEGATIVE (NEGATIVE); OCCULT BLOOD,URINE NEGATIVE (NEGATIVE); PH,URINE 7.5 (5.0-8.0); UROBILINOGEN,URINE 0.2 mg/dL (<=1.0)
[2018-12-09 12:50] LABS: PROTEIN,URINE TRACE (NEGATIVE)
[2018-12-09 12:51] LABS: BACTERIA,URINE None Seen /HPF (None Seen); RBC,URINE None Seen /HPF (0-2); WBC,URINE None Seen /HPF (0-5)
[2018-12-09] MEDS ORDERED: IOVERSOL 350 MG/ML 100 ML VIAL ONE (13:33)
[2018-12-09] MEDS ORDERED: 0.9% SODIUM CHLORIDE 10 ML SYRINGE IVP PRN ×2 (14:45)
[2018-12-09] MEDS ORDERED: ACETAMINOPHEN 325 MG TABLET PO PRN ×2 (14:45)
[2018-12-09] MEDS ORDERED: ONDANSETRON HCL 4 MG/2 ML VIAL IVP PRN ×2 (14:45)
[2018-12-09] MEDS ORDERED: CARV6 PO (14:52)
[2018-12-09] MEDS ORDERED: HEPA500018 SQ (14:52)
[2018-12-09] MEDS ORDERED: HydrALAZINE HCL 20 MG/ML VIAL IVP PRN ×2 (16:30→22:30)
[2018-12-09 20:16] VITALS: BP 148/65
[2018-12-09] MEDS ORDERED: DEXTROSE 50%-WATER 25 GM/50 ML SYRINGE IVP PRN ×2 (21:00)
[2018-12-09] MEDS ORDERED: INSULIN REGULAR, HUMAN 100 UNITS/ML SQ PRN (21:00)
[2018-12-09] MEDS: DEXTROSE 5%-0.45% SODIUM CHL 1,000 ML IV SCH (21:11)
[2018-12-09] MEDS: INSULIN LISPRO 100 UNITS/ML SQ PRN (21:49)
[2018-12-10] VITALS (7 sets, daily range): BP systolic 108–183; BP diastolic 46–107
[2018-12-10 00:50] LABS: GLUCOMETER DEV NAME(LOC) 6N.1; GLUCOSE,POINT OF CARE 205 MG/DL (70-110)
[2018-12-10] MEDS ORDERED: ONDANSETRON HCL 4 MG/2 ML VIAL IVP PRN (01:00)
[2018-12-10] MEDS ORDERED: OxyCODONE HCL/ACETAMINOPHEN 5-325 MG TABLET PO PRN ×2 (01:00)
[2018-12-10] MEDS ORDERED: *CLINICAL-LEVOFLOXACIN IVPB DOSING CLINICAL ONE (01:00)
[2018-12-10] MEDS ORDERED: 0.9% SODIUM CHLORIDE 10 ML SYRINGE IVP PRN (01:00)
[2018-12-10] MEDS ORDERED: -PHARMACY VACCINE NOTE- MISC ONE (01:15)
[2018-12-10] MEDS ORDERED: LEVOFLOXACIN 500 MG/D5% WATER 100 ML IV ONE (01:30)
[2018-12-10] MEDS: INSULIN LISPRO 100 UNITS/ML SQ PRN ×3 (06:28→20:29)
[2018-12-10 06:36] LABS: GLUCOMETER DEV NAME(LOC) 6N.1; GLUCOSE,POINT OF CARE 147 MG/DL (70-110)
[2018-12-10] MEDS: DOCUSATE SODIUM 100 MG CAPSULE PO SCH ×2 (08:33→20:18)
[2018-12-10 11:55] LABS: GLUCOMETER DEV NAME(LOC) 6N.1; GLUCOSE,POINT OF CARE 126 MG/DL (70-110)
[2018-12-10] MEDS: DEXTROSE 5%-0.45% SODIUM CHL 1,000 ML IV SCH (14:16)
[2018-12-10] MEDS: ENALAPRILAT DIHYDRATE 1.25 MG/ML 2 ML VIAL IVP PRN (17:55)
[2018-12-10 19:06] LABS: GLUCOMETER DEV NAME(LOC) 6N.1; GLUCOSE,POINT OF CARE 176 MG/DL (70-110)
[2018-12-10 20:56] LABS: GLUCOMETER DEV NAME(LOC) 6N.1; GLUCOSE,POINT OF CARE 152 MG/DL (70-110)
[2018-12-11] MEDS ORDERED: LEVOFLOXACIN 250 MG/D5% WATER 50 ML IV SCH (01:00)
[2018-12-11 04:23] VITALS: BP 151/68
[2018-12-11 05:36] LABS: BASOPHILS % (AUTO) 1.3 % (0.0-2.0); EOSINOPHILS % (AUTO) 4.1 % (1.0-6.0); HEMATOCRIT 27.4 % (36-46); HEMOGLOBIN 9.4 g/dL (12.0-16.0); LYMPHOCYTES # (AUTO) 1.1 K/uL (1.0-4.8); LYMPHOCYTES % (AUTO) 24.7 % (22.0-44.0); MEAN CORPUSCULAR HEMOGLOBIN 33.5 pg (26.0-34.0); MEAN CORPUSCULAR HGB CONC 34.2 G/dL (31.0-37.0); MEAN CORPUSCULAR VOLUME 98 fL (80-100); MONOCYTES # (AUTO) 0.6 K/uL (0.1-1.0); MONOCYTES % (AUTO) 13.4 % (2.0-9.0); NEUTROPHILS # (AUTO) 2.5 K/uL (1.8-7.7); NEUTROPHILS % (AUTO) 56.5 % (40.0-70.0); PLATELET COUNT (AUTO) 228 K/uL (150-450); RED CELL DISTRIBUTION WIDTH 15.2 % (11.5-14.5)
[2018-12-11 05:42] LABS: CALCIUM, TOTAL 8.3 mg/dL (8.8-10.5); CREATININE 1.03 mg/dL (0.60-1.30); POTASSIUM 4.3 mmol/L (3.5-5.1)
[2018-12-11] MEDS: DEXTROSE 5%-0.45% SODIUM CHL 1,000 ML IV SCH (05:58)
[2018-12-11 06:11] LABS: GLUCOMETER DEV NAME(LOC) 6N.1; GLUCOSE,POINT OF CARE 138 MG/DL (70-110)
[2018-12-11 07:33] VITALS: BP 125/55
[2018-12-11] MEDS: LEVOFLOXACIN 750 MG/D5% WATER 150 ML IV SCH (07:59)
[2018-12-11] MEDS: DOCUSATE SODIUM 100 MG CAPSULE PO SCH ×2 (08:02→19:40)
[2018-12-11 09:16] LABS: MAGNESIUM 1.4 mg/dL (1.80-2.40)
[2018-12-11 11:14] VITALS: BP 130/59
[2018-12-11] MEDS: INSULIN LISPRO 100 UNITS/ML SQ PRN ×2 (12:16→20:16)
[2018-12-11 12:36] LABS: GLUCOMETER DEV NAME(LOC) 6N.1; GLUCOSE,POINT OF CARE 177 MG/DL (70-110)
[2018-12-11] MEDS ORDERED: MAGNESIUM SULFATE 2 GM/WATER 50 ML IV ONE (14:00)
[2018-12-11 15:20] VITALS: BP 123/68
[2018-12-11] MEDS ORDERED: SODIUM CHLORIDE 0.9% 500 ML IV ONE (15:25)
[2018-12-11 17:22] LABS: GLUCOMETER DEV NAME(LOC) 6N.1; GLUCOSE,POINT OF CARE 126 MG/DL (70-110)
[2018-12-11 19:21] VITALS: BP 102/52
[2018-12-11 20:31] LABS: GLUCOMETER DEV NAME(LOC) 6N.1; GLUCOSE,POINT OF CARE 181 MG/DL (70-110)
[2018-12-12] MEDS ORDERED: DEXTROSE 5%-0.45% SODIUM CHL 1,000 ML IV SCH
[2018-12-12 00:13] VITALS: BP 129/54
[2018-12-12] MEDS ORDERED: ACETAMINOPHEN 650 MG/20.3 ML SOLUTION UDCUP NG PRN (04:15)
[2018-12-12 05:02] VITALS: BP 121/48
[2018-12-12] MEDS: INSULIN LISPRO 100 UNITS/ML SQ PRN ×3 (06:18→21:11)
[2018-12-12 06:42] LABS: GLUCOMETER DEV NAME(LOC) 6N.1; GLUCOSE,POINT OF CARE 191 MG/DL (70-110)
[2018-12-12 06:44] LABS: CALCIUM, TOTAL 8.3 mg/dL (8.8-10.5); CREATININE 1.33 mg/dL (0.60-1.30)
[2018-12-12 06:49] LABS: POTASSIUM 3.6 mmol/L (3.5-5.1)
[2018-12-12 07:35] VITALS: BP 113/74
[2018-12-12] MEDS: DOCUSATE SODIUM 100 MG CAPSULE PO SCH ×2 (08:20→20:01)
[2018-12-12 08:37] LABS: BASOPHILS % (AUTO) 0.5 % (0.0-2.0); EOSINOPHILS % (AUTO) 0.2 % (1.0-6.0); HEMATOCRIT 28.7 % (36-46); HEMOGLOBIN 9.7 g/dL (12.0-16.0); LYMPHOCYTES # (AUTO) 0.7 K/uL (1.0-4.8); LYMPHOCYTES % (AUTO) 7.5 % (22.0-44.0); MEAN CORPUSCULAR HEMOGLOBIN 33.5 pg (26.0-34.0); MEAN CORPUSCULAR HGB CONC 33.7 G/dL (31.0-37.0); MEAN CORPUSCULAR VOLUME 100 fL (80-100); MONOCYTES # (AUTO) 0.9 K/uL (0.1-1.0); MONOCYTES % (AUTO) 9.2 % (2.0-9.0); NEUTROPHILS # (AUTO) 7.7 K/uL (1.8-7.7); NEUTROPHILS % (AUTO) 82.6 % (40.0-70.0); PLATELET COUNT (AUTO) 224 K/uL (150-450); RED BLOOD CELL COUNT(AUTO) 2.88 MIL/uL (4.00-5.20); RED CELL DISTRIBUTION WIDTH 15.3 % (11.5-14.5)
[2018-12-12] MEDS ORDERED: SODIUM CHLORIDE 0.9% 1,000 ML IV ONE (09:15)
[2018-12-12] MEDS ORDERED: CeFAZolin 1 GM/DEXTROSE 50 ML IV ONE (11:00)
[2018-12-12 11:58] VITALS: BP 147/74
[2018-12-12] MEDS: METOCLOPRAMIDE HCL 5 MG/ML 2 ML VIAL IVP SCH (15:34)
[2018-12-12 16:37] VITALS: BP 124/63
[2018-12-12 17:56] LABS: GLUCOMETER DEV NAME(LOC) 6N.1; GLUCOSE,POINT OF CARE 186 MG/DL (70-110)
[2018-12-12 19:58] VITALS: BP 144/47
[2018-12-12] MEDS: LOVASTATIN 20 MG TABLET PO SCH (20:41)
[2018-12-12] MEDS: CARVEDILOL 6.25 MG TABLET PO SCH (20:41)
[2018-12-12 21:27] LABS: GLUCOMETER DEV NAME(LOC) 6N.1; GLUCOSE,POINT OF CARE 143 MG/DL (70-110)
[2018-12-13] MEDS: METOCLOPRAMIDE HCL 5 MG/ML 2 ML VIAL IVP SCH ×3 (00:06→16:33)
[2018-12-13 00:09] VITALS: BP 116/77
[2018-12-13 04:00] VITALS: BP 124/69
[2018-12-13] MEDS ORDERED: LIDOCAINE/PF 2% 5 ML VIAL IM ONE (05:40)
[2018-12-13] MEDS ORDERED: PROPOFOL 1% 20 ML VIAL IVP ONE (05:40)
[2018-12-13 06:18] LABS: BASOPHILS % (AUTO) 0.8 % (0.0-2.0); EOSINOPHILS % (AUTO) 2.1 % (1.0-6.0); HEMATOCRIT 27.6 % (36-46); HEMOGLOBIN 9.5 g/dL (12.0-16.0); LYMPHOCYTES % (AUTO) 13.6 % (22.0-44.0); MEAN CORPUSCULAR HEMOGLOBIN 33.9 pg (26.0-34.0); MEAN CORPUSCULAR HGB CONC 34.4 G/dL (31.0-37.0); MEAN CORPUSCULAR VOLUME 99 fL (80-100); MONOCYTES # (AUTO) 0.6 K/uL (0.1-1.0); MONOCYTES % (AUTO) 8.5 % (2.0-9.0); NEUTROPHILS # (AUTO) 5.6 K/uL (1.8-7.7); PLATELET COUNT (AUTO) 203 K/uL (150-450); RED CELL DISTRIBUTION WIDTH 15.1 % (11.5-14.5)
[2018-12-13 06:29] LABS: CALCIUM, TOTAL 8.6 mg/dL (8.8-10.5); CREATININE 1.46 mg/dL (0.60-1.30); MAGNESIUM 1.9 mg/dL (1.80-2.40); PHOSPHORUS 4.2 mg/dL (2.5-4.9); POTASSIUM 3.5 mmol/L (3.5-5.1)
[2018-12-13] MEDS: INSULIN LISPRO 100 UNITS/ML SQ PRN ×3 (06:44→18:04)
[2018-12-13 07:15] LABS: GLUCOMETER DEV NAME(LOC) 6N.1; GLUCOSE,POINT OF CARE 150 MG/DL (70-110)
[2018-12-13 07:49] VITALS: BP 158/84
[2018-12-13] MEDS ORDERED: SODIUM CHLORIDE 0.9% 250 ML IV ONE (08:10)
[2018-12-13] MEDS: ASPIRIN 81 MG CHEWABLE TABLET PO SCH (08:25)
[2018-12-13] MEDS: LEVOFLOXACIN 750 MG/D5% WATER 150 ML IV SCH (08:25)
[2018-12-13] MEDS: POVIDONE-IODINE 10% 120 ML SOLUTION TP SCH (08:25)
[2018-12-13] MEDS: CARVEDILOL 6.25 MG TABLET PO SCH ×2 (08:25→20:28)
[2018-12-13] MEDS: HYDROGEN PEROXIDE 473 ML SOLUTION TP SCH (08:26)
[2018-12-13] MEDS: DOCUSATE SODIUM 100 MG CAPSULE PO SCH ×2 (08:46→20:25)
[2018-12-13] MEDS ORDERED: HYDROGEN PEROXIDE 473 ML SOLUTION TP SCH (09:00)
[2018-12-13] MEDS ORDERED: POVIDONE-IODINE 10% 120 ML SOLUTION TP SCH (09:00)
[2018-12-13] MEDS ORDERED: SODIUM CHLORIDE 0.9% 500 ML IV ONE (10:00)
[2018-12-13 12:05] VITALS: BP 151/71
[2018-12-13 16:39] VITALS: BP 120/56
[2018-12-13] MEDS: LOVASTATIN 20 MG TABLET PO SCH (20:25)
[2018-12-13] MEDS: LACTOBACILLUS ACIDOPHILUS/BULGARICUS GRANULES PACKET PO SCH (20:25)
[2018-12-13 21:21] VITALS: BP 120/69
[2018-12-13 21:31] LABS: GLUCOMETER DEV NAME(LOC) 6N.1; GLUCOSE,POINT OF CARE 148 MG/DL (70-110)
[2018-12-13 21:31] LABS: GLUCOMETER DEV NAME(LOC) 6N.1; GLUCOSE,POINT OF CARE 167 MG/DL (70-110)
[2018-12-13 21:31] LABS: GLUCOMETER DEV NAME(LOC) 6N.1; GLUCOSE,POINT OF CARE 135 MG/DL (70-110)
[2018-12-14] VITALS: BP 144/50
[2018-12-14] MEDS: METOCLOPRAMIDE HCL 5 MG/ML 2 ML VIAL IVP SCH ×2 (00:43→08:13)
[2018-12-14 05:00] VITALS: BP 155/60
[2018-12-14 05:59] LABS: BASOPHILS % (AUTO) 0.6 % (0.0-2.0); EOSINOPHILS % (AUTO) 3.8 % (1.0-6.0); HEMATOCRIT 26.8 % (36-46); HEMOGLOBIN 9.1 g/dL (12.0-16.0); LYMPHOCYTES % (AUTO) 15.9 % (22.0-44.0); MEAN CORPUSCULAR HEMOGLOBIN 33.4 pg (26.0-34.0); MEAN CORPUSCULAR VOLUME 98 fL (80-100); MONOCYTES # (AUTO) 0.7 K/uL (0.1-1.0); MONOCYTES % (AUTO) 10.9 % (2.0-9.0); NEUTROPHILS # (AUTO) 4.1 K/uL (1.8-7.7); NEUTROPHILS % (AUTO) 68.8 % (40.0-70.0); PLATELET COUNT (AUTO) 181 K/uL (150-450); RED BLOOD CELL COUNT(AUTO) 2.72 MIL/uL (4.00-5.20); RED CELL DISTRIBUTION WIDTH 15.1 % (11.5-14.5)
[2018-12-14] MEDS: ENALAPRILAT DIHYDRATE 1.25 MG/ML 2 ML VIAL IVP PRN (06:05)
[2018-12-14 06:07] LABS: CALCIUM, TOTAL 8.1 mg/dL (8.8-10.5); CREATININE 1.18 mg/dL (0.60-1.30); POTASSIUM 3.9 mmol/L (3.5-5.1)
[2018-12-14] MEDS: INSULIN LISPRO 100 UNITS/ML SQ PRN ×2 (06:07→11:27)
[2018-12-14 06:26] LABS: GLUCOMETER DEV NAME(LOC) 6N.1; GLUCOSE,POINT OF CARE 199 MG/DL (70-110)
[2018-12-14] MEDS: ASPIRIN 81 MG CHEWABLE TABLET PO SCH (08:12)
[2018-12-14] MEDS: LACTOBACILLUS ACIDOPHILUS/BULGARICUS GRANULES PACKET PO SCH (08:12)
[2018-12-14] MEDS: CARVEDILOL 6.25 MG TABLET PO SCH (08:13)
[2018-12-14] MEDS: DOCUSATE SODIUM 100 MG CAPSULE PO SCH (08:13)
[2018-12-14] MEDS: HYDROGEN PEROXIDE 473 ML SOLUTION TP SCH (08:14)
[2018-12-14] MEDS: POVIDONE-IODINE 10% 120 ML SOLUTION TP SCH (08:14)
[2018-12-14 08:23] VITALS: BP 138/44
[2018-12-14 11:53] VITALS: BP 131/73
[2018-12-14 16:46] LABS: GLUCOMETER DEV NAME(LOC) 6N.1; GLUCOSE,POINT OF CARE 198 MG/DL (70-110)
== END 2018-12-14 14:20 | DRG 177 ==
LOC: EMS 10:38 → 6N 18:28
PROVIDERS: ADMIT Internal Medicine; ATTEND Internal Medicine
PROC: 4A00X4Z Measurement of Central Nervous Electrical Activity, External Approach (ICD-10-PCS; principal; 2018-12-10)
PROC: 0DH63UZ Insertion of Feeding Device into Stomach, Percutaneous Approach (ICD-10-PCS; 2018-12-12)
DX: J69.0 Pneumonitis due to inhalation of food and vomit (principal); G93.41 Metabolic encephalopathy; E43 Unspecified severe protein-calorie malnutrition; D64.9 Anemia, unspecified; E11.9 Type 2 diabetes mellitus without complications; E78.00 Pure hypercholesterolemia, unspecified; E78.5 Hyperlipidemia, unspecified; F03.90 Unspecified dementia, unspecified severity, without behavioral disturbance, psychotic disturbance, mood disturbance, and anxiety; I10 Essential (primary) hypertension; I25.10 Atherosclerotic heart disease of native coronary artery without angina pectoris; R13.10 Dysphagia, unspecified; Z87.440 Personal history of urinary (tract) infections; Z95.0 Presence of cardiac pacemaker; Z79.899 Other long term (current) drug therapy; Z79.82 Long term (current) use of aspirin
CPT/HCPCS: 70450; 71275; 74018; 83605; 83735; 84100; 87040; 87804; 92610; 93005; 95816; 96374; G0480; G0481; J0360; J0690; J1956; J2704; J2765; J3475; J3490; J7030; J7040; J7050

== ENCOUNTER 2018-12-21 06:57 | Inpatient (IN) | payer MEDICARE, OTHER ==
[~2018-12-21] VITALS: Ht 162.6 cm; Wt 82.1 kg
[~2018-12-21 06:57] MED LIST changes: -CARV25 PO; +CARV6 PO; +DSS100 PO; +FAMO20 PO; +FLUC100T PO; +GABA-529 PO; -GABA-531 PO; +HEPA500018 SQ; +INSU100V SQ
[2018-12-21] MEDS ORDERED: ALBUTEROL SULFATE 2.5 MG/0.5 ML NEB SOLUTION NEB ONE ×2 (07:30→09:00)
[2018-12-21] MEDS ORDERED: IPRATROPIUM BROMIDE 0.5 MG/2.5 ML NEB SOLUTION NEB ONE (07:30)
[2018-12-21 07:41] LABS: GLUCOSE,POINT OF CARE 439 MG/DL (70-110)
[2018-12-21] MEDS: OXYGEN THERAPY IH SCH ×2 (08:02→19:17)
[2018-12-21 08:37] LABS: BASOPHILS % (AUTO) 0.1 % (0.0-2.0); EOSINOPHILS % (AUTO) 0.1 % (1.0-6.0); HEMOGLOBIN 11.1 g/dL (12.0-16.0); LYMPHOCYTES # (AUTO) 0.7 K/uL (1.0-4.8); LYMPHOCYTES % (AUTO) 2.3 % (22.0-44.0); MEAN CORPUSCULAR HEMOGLOBIN 32.9 pg (26.0-34.0); MEAN CORPUSCULAR HGB CONC 33.6 G/dL (31.0-37.0); MEAN CORPUSCULAR VOLUME 98 fL (80-100); MONOCYTES # (AUTO) 0.9 K/uL (0.1-1.0); MONOCYTES % (AUTO) 2.9 % (2.0-9.0); NEUTROPHILS # (AUTO) 28.2 K/uL (1.8-7.7); NEUTROPHILS % (AUTO) 94.6 % (40.0-70.0); PLATELET COUNT (AUTO) 217 K/uL (150-450); RED BLOOD CELL COUNT(AUTO) 3.37 MIL/uL (4.00-5.20)
[2018-12-21] MEDS ORDERED: SODIUM CHLORIDE 0.9% 1,700 ML IV ONE (08:45)
[2018-12-21] MEDS ORDERED: INSULIN REGULAR, HUMAN 100 UNITS/ML IVP ONE (08:45)
[2018-12-21] MEDS ORDERED: CefTRIAXone 1 GM/DEXTROSE 50 ML IV ONE (08:45)
[2018-12-21 08:48] LABS: PROTHROMBIN TIME 10.4 SEC (9.4-11.6)
[2018-12-21 08:49] LABS: APPEARANCE,URINE CLOUDY (CLEAR); BILIRUBIN,URINE NEGATIVE (NEGATIVE); GLUCOSE, URINE (UA) 100 mg/dL (NEGATIVE); KETONES,URINE NEGATIVE (NEGATIVE); LEUKOCYTE ESTERASE ,URINE SMALL (NEGATIVE); NITRATE,URINE NEGATIVE (NEGATIVE); OCCULT BLOOD,URINE TRACE (NEGATIVE); PH,URINE 5.5 (5.0-8.0); PROTEIN,URINE POS 1+ (NEGATIVE); UROBILINOGEN,URINE 0.2 mg/dL (<=1.0)
[2018-12-21 08:52] LABS: ALBUMIN 2.6 g/dL (3.4-5.0); BILIRUBIN,TOTAL 0.5 mg/dL (0.1-1.0); CREATININE 1.41 mg/dL (0.60-1.30); TOTAL PROTEIN, SERUM 6.1 g/dL (6.4-8.2)
[2018-12-21] MEDS ORDERED: SODIUM BICARBONATE [ADULT] 8.4% 50 MEQ/50 ML SYRINGE IVP ONE (09:00)
[2018-12-21] MEDS ORDERED: CALCIUM GLUCONATE 100 MG/ML 10 ML IVP ONE (09:00)
[2018-12-21 09:04] LABS: BACTERIA,URINE Many /HPF (None Seen); RBC,URINE 0-2 /HPF (0-2); SQUAMOUS EPITHELIAL CELL,UR Few /LPF (None Seen)
[2018-12-21 09:05] LABS: LACTIC ACID 1.6 mmol/L (0.4-2.0)
[2018-12-21] MEDS ORDERED: 0.9% SODIUM CHLORIDE 5 ML NEB SOLUTION NEB ONE (09:38)
[2018-12-21] MEDS ORDERED: DEXTROSE 50%-WATER 25 GM/50 ML SYRINGE IVP PRN (10:00)
[2018-12-21] MEDS ORDERED: 0.9% SODIUM CHLORIDE 10 ML SYRINGE IVP PRN (10:00)
[2018-12-21] MEDS ORDERED: ONDANSETRON HCL 4 MG/2 ML VIAL IVP PRN (10:00)
[2018-12-21] MEDS ORDERED: PANTOPRAZOLE SODIUM 40 MG/VIAL IVP ONE (10:00)
[2018-12-21] MEDS ORDERED: PIPERACILLIN/TAZO 3.375 GM/D5W 50 ML IV ONE (10:15)
[2018-12-21] MEDS ORDERED: ALBUTEROL SULFATE 2.5 MG/0.5 ML NEB SOLUTION NEB PRN (10:15)
[2018-12-21] MEDS ORDERED: BISACODYL 10 MG RECTAL RECTAL SUPPOSITORY PR PRN (10:15)
[2018-12-21] MEDS ORDERED: IPRATROPIUM BROMIDE 0.5 MG/2.5 ML NEB SOLUTION NEB PRN (10:15)
[2018-12-21] MEDS ORDERED: VANCOMYCIN HCL 1 GM/D5% WATER 200 ML IV ONE (10:15)
[2018-12-21] MEDS ORDERED: ACETAMINOPHEN 325 MG TABLET PO PRN (10:15)
[2018-12-21] MEDS ORDERED: DOCU-275 PO (10:55)
[2018-12-21] MEDS: SODIUM CHLORIDE 0.9% 1,000 ML IV SCH (11:48)
[2018-12-21] MEDS: PANTOPRAZOLE SODIUM 80 MG in SODIUM CHLORIDE 0.9% 100 ML IV SCH ×2 (11:48→21:42)
[2018-12-21 13:06] LABS: CALCIUM, TOTAL 8.4 mg/dL (8.8-10.5); CREATININE 1.4 mg/dL (0.60-1.30); POTASSIUM 5.3 mmol/L (3.5-5.1)
[2018-12-21 15:04] LABS: HEMATOCRIT 29.7 % (36-46); HEMOGLOBIN 9.8 g/dL (12.0-16.0); MEAN CORPUSCULAR HEMOGLOBIN 32.6 pg (26.0-34.0); MEAN CORPUSCULAR HGB CONC 32.9 G/dL (31.0-37.0); MEAN CORPUSCULAR VOLUME 99 fL (80-100); PLATELET COUNT (AUTO) 179 K/uL (150-450); RED CELL DISTRIBUTION WIDTH 14.9 % (11.5-14.5)
[2018-12-21 15:40] LABS: BAND NEUTROPHILS % (MANUAL) 10 % (0-5); LYMPHOCYTES % (MANUAL) 4 % (22-44); MONOCYTES % (MANUAL) 4 % (2-9); SEGMENTED NEUTROPHILS % 82 % (40-70)
[2018-12-21] MEDS ORDERED: PIPERACILLIN SODIUM/TAZOBACTAM 2.25 GM in DEXTROSE 5%-WATER 50 ML IV ONE (16:00)
[2018-12-21] MEDS ORDERED: SODIUM CHLORIDE 0.9% 500 ML IV ONE (16:30)
[2018-12-21] MEDS ORDERED: *CLINICAL-RX DOSING [ENTER DRUG IN COMMENTS] CLINICAL ONE (17:15)
[2018-12-21] MEDS ORDERED: MEROPENEM 500 MG in SODIUM CHLORIDE 0.9% 50 ML IV ONE (17:45)
[2018-12-21] MEDS: MetroNIDAZOLE 500 MG/NACL 100 ML IV SCH (18:17)
[2018-12-21 19:19] LABS: HEMATOCRIT 27.7 % (36-46); HEMOGLOBIN 9.3 g/dL (12.0-16.0); MEAN CORPUSCULAR HEMOGLOBIN 33.1 pg (26.0-34.0); MEAN CORPUSCULAR HGB CONC 33.7 G/dL (31.0-37.0); MEAN CORPUSCULAR VOLUME 98 fL (80-100); PLATELET COUNT (AUTO) 175 K/uL (150-450); RED BLOOD CELL COUNT(AUTO) 2.82 MIL/uL (4.00-5.20); RED CELL DISTRIBUTION WIDTH 14.9 % (11.5-14.5)
[2018-12-21 19:27] LABS: POTASSIUM 4.9 mmol/L (3.5-5.1)
[2018-12-21 19:28] LABS: CALCIUM, TOTAL 8.7 mg/dL (8.8-10.5); CREATININE 1.39 mg/dL (0.60-1.30)
[2018-12-21 19:33] LABS: ALBUMIN 2.3 g/dL (3.4-5.0); BILIRUBIN,TOTAL 0.5 mg/dL (0.1-1.0); TOTAL PROTEIN, SERUM 5.5 g/dL (6.4-8.2)
[2018-12-21 19:40] LABS: GLUCOSE,POINT OF CARE 329 MG/DL (70-110)
[2018-12-21 20:04] LABS: BAND NEUTROPHILS % (MANUAL) 10 % (0-5); LYMPHOCYTES % (MANUAL) 3 % (22-44); MONOCYTES % (MANUAL) 3 % (2-9); SEGMENTED NEUTROPHILS % 83 % (40-70)
[2018-12-21] MEDS: DOCUSATE SODIUM 100 MG CAPSULE PO SCH (21:00)
[2018-12-21] MEDS: LOVASTATIN 20 MG TABLET PO SCH (21:00)
[2018-12-21 21:01] LABS: HEMATOCRIT 26.9 % (36-46); HEMOGLOBIN 8.7 g/dL (12.0-16.0)
[2018-12-21] MEDS ORDERED: PIPERACILLIN SODIUM/TAZOBACTAM 2.25 GM in DEXTROSE 5%-WATER 50 ML IV SCH (22:00)
[2018-12-21] MEDS: INSULIN LISPRO 100 UNITS/ML SQ PRN (23:00)
[2018-12-22 00:40] VITALS: BP 145/51
[2018-12-22] MEDS: SODIUM CHLORIDE 0.9% 1,000 ML IV SCH ×2 (01:13→20:11)
[2018-12-22] MEDS: MetroNIDAZOLE 500 MG/NACL 100 ML IV SCH ×2 (01:14→11:01)
[2018-12-22 01:56] LABS: HEMATOCRIT 26.7 % (36-46); HEMOGLOBIN 8.8 g/dL (12.0-16.0)
[2018-12-22 04:28] VITALS: BP 121/47
[2018-12-22] MEDS: MEROPENEM 500 MG in SODIUM CHLORIDE 0.9% 50 ML IV SCH ×2 (06:07→17:03)
[2018-12-22] MEDS: PANTOPRAZOLE SODIUM 80 MG in SODIUM CHLORIDE 0.9% 100 ML IV SCH ×2 (06:07→15:17)
[2018-12-22] MEDS: FERROUS SULFATE 325 MG EC TABLET PO SCH (08:00)
[2018-12-22] MEDS ORDERED: [UNRECOGNIZED DRUG - OTHER] PO SCH (08:00)
[2018-12-22 08:23] VITALS: BP 117/87
[2018-12-22] MEDS: CITALOPRAM HYDROBROMIDE 20 MG TABLET PO SCH (08:48)
[2018-12-22] MEDS: DOCUSATE SODIUM 100 MG CAPSULE PO SCH ×2 (08:48→21:00)
[2018-12-22] MEDS: CYANOCOBALAMIN 500 MCG TABLET PO SCH (08:48)
[2018-12-22] MEDS: FOLIC ACID 0.4 MG TABLET PO SCH (08:48)
[2018-12-22] MEDS: VANCOMYCIN HCL 750 MG in DEXTROSE 5%-WATER 250 ML IV SCH (08:56)
[2018-12-22 09:10] LABS: HEMATOCRIT 26.1 % (36-46); HEMOGLOBIN 8.6 g/dL (12.0-16.0)
[2018-12-22 09:24] LABS: BILIRUBIN,TOTAL 0.3 mg/dL (0.1-1.0); CALCIUM, TOTAL 8.6 mg/dL (8.8-10.5); CREATININE 1.13 mg/dL (0.60-1.30); TOTAL PROTEIN, SERUM 5.1 g/dL (6.4-8.2)
[2018-12-22 10:55] LABS: GLUCOMETER DEV NAME(LOC) 5S.1; GLUCOSE,POINT OF CARE 107 MG/DL (70-110)
[2018-12-22 12:31] LABS: MEAN CORPUSCULAR HEMOGLOBIN 32.3 pg (26.0-34.0); MEAN CORPUSCULAR HGB CONC 33.1 G/dL (31.0-37.0); MEAN CORPUSCULAR VOLUME 98 fL (80-100); PLATELET COUNT (AUTO) 167 K/uL (150-450); RED BLOOD CELL COUNT(AUTO) 2.67 MIL/uL (4.00-5.20); RED CELL DISTRIBUTION WIDTH 14.6 % (11.5-14.5)
[2018-12-22 12:32] LABS: BASOPHILS % (AUTO) 0.3 % (0.0-2.0); EOSINOPHILS % (AUTO) 0.6 % (1.0-6.0); LYMPHOCYTES % (AUTO) 5.7 % (22.0-44.0); MONOCYTES # (AUTO) 0.6 K/uL (0.1-1.0); MONOCYTES % (AUTO) 3.5 % (2.0-9.0); NEUTROPHILS # (AUTO) 16.3 K/uL (1.8-7.7); NEUTROPHILS % (AUTO) 89.9 % (40.0-70.0)
[2018-12-22 16:20] LABS: HEMATOCRIT 27.9 % (36-46); HEMOGLOBIN 9.1 g/dL (12.0-16.0)
[2018-12-22 17:09] VITALS: BP 147/54
[2018-12-22 19:18] VITALS: BP 109/57
[2018-12-22 19:30] LABS: GLUCOMETER DEV NAME(LOC) 5N.1; GLUCOSE,POINT OF CARE 170 MG/DL (70-110)
[2018-12-22 20:00] LABS: GLUCOMETER DEV NAME(LOC) 5S.1; GLUCOSE,POINT OF CARE 208 MG/DL (70-110)
[2018-12-22] MEDS: LOVASTATIN 20 MG TABLET PO SCH (21:00)
[2018-12-22 22:59] LABS: HEMATOCRIT 26.4 % (36-46); HEMOGLOBIN 8.8 g/dL (12.0-16.0)
[2018-12-22 23:54] VITALS: BP 151/56
[2018-12-23] MEDS: PANTOPRAZOLE SODIUM 80 MG in SODIUM CHLORIDE 0.9% 100 ML IV SCH ×2 (01:50→12:17)
[2018-12-23 03:55] LABS: GLUCOMETER DEV NAME(LOC) 5N.2; GLUCOSE,POINT OF CARE 149 MG/DL (70-110)
[2018-12-23 05:05] VITALS: BP 146/61
[2018-12-23] MEDS: MEROPENEM 500 MG in SODIUM CHLORIDE 0.9% 50 ML IV SCH (05:24)
[2018-12-23 06:51] LABS: GLUCOMETER DEV NAME(LOC) 5N.2; GLUCOSE,POINT OF CARE 150 MG/DL (70-110)
[2018-12-23 07:39] VITALS: BP 172/56
[2018-12-23 07:45] LABS: BASOPHILS % (AUTO) 0.8 % (0.0-2.0); EOSINOPHILS % (AUTO) 3.7 % (1.0-6.0); HEMATOCRIT 27.5 % (36-46); HEMOGLOBIN 9.2 g/dL (12.0-16.0); LYMPHOCYTES # (AUTO) 0.8 K/uL (1.0-4.8); LYMPHOCYTES % (AUTO) 9.3 % (22.0-44.0); MEAN CORPUSCULAR HEMOGLOBIN 32.7 pg (26.0-34.0); MEAN CORPUSCULAR HGB CONC 33.6 G/dL (31.0-37.0); MEAN CORPUSCULAR VOLUME 97 fL (80-100); MONOCYTES # (AUTO) 0.5 K/uL (0.1-1.0); MONOCYTES % (AUTO) 6.1 % (2.0-9.0); NEUTROPHILS # (AUTO) 6.7 K/uL (1.8-7.7); NEUTROPHILS % (AUTO) 80.1 % (40.0-70.0); PLATELET COUNT (AUTO) 168 K/uL (150-450); RED BLOOD CELL COUNT(AUTO) 2.83 MIL/uL (4.00-5.20); RED CELL DISTRIBUTION WIDTH 14.9 % (11.5-14.5)
[2018-12-23] MEDS: FERROUS SULFATE 325 MG EC TABLET PO SCH (08:00)
[2018-12-23 08:02] LABS: ALBUMIN 2.1 g/dL (3.4-5.0); BILIRUBIN,TOTAL 0.4 mg/dL (0.1-1.0); CALCIUM, TOTAL 8.2 mg/dL (8.8-10.5); CREATININE 0.91 mg/dL (0.60-1.30); POTASSIUM 4.2 mmol/L (3.5-5.1); TOTAL PROTEIN, SERUM 5.1 g/dL (6.4-8.2)
[2018-12-23] MEDS: SODIUM CHLORIDE 0.9% 1,000 ML IV SCH ×2 (08:44→23:37)
[2018-12-23] MEDS: VANCOMYCIN HCL 750 MG in DEXTROSE 5%-WATER 250 ML IV SCH (08:45)
[2018-12-23] MEDS: CITALOPRAM HYDROBROMIDE 20 MG TABLET PO SCH (09:00)
[2018-12-23] MEDS: DOCUSATE SODIUM 100 MG CAPSULE PO SCH ×2 (09:00→21:00)
[2018-12-23] MEDS: FOLIC ACID 0.4 MG TABLET PO SCH (09:00)
[2018-12-23] MEDS: CYANOCOBALAMIN 500 MCG TABLET PO SCH (09:00)
[2018-12-23 10:50] VITALS: BP 182/63
[2018-12-23] MEDS: LISINOPRIL 5 MG TABLET PO SCH (13:00)
[2018-12-23] MEDS ORDERED: HydrALAZINE HCL 20 MG/ML VIAL IVP PRN (14:00)
[2018-12-23 15:37] VITALS: BP 122/94
[2018-12-23 16:06] LABS: HEMATOCRIT 27.5 % (36-46); HEMOGLOBIN 9.2 g/dL (12.0-16.0)
[2018-12-23] MEDS: CefoTEtan DISOD 1 GM/DEXTROSE 50 ML IV SCH (16:34)
[2018-12-23 19:31] VITALS: BP 146/63
[2018-12-23 19:40] LABS: GLUCOMETER DEV NAME(LOC) 5S.1; GLUCOSE,POINT OF CARE 190 MG/DL (70-110)
[2018-12-23 19:40] LABS: GLUCOMETER DEV NAME(LOC) 5S.1; GLUCOSE,POINT OF CARE 178 MG/DL (70-110)
[2018-12-23 20:40] LABS: HEMATOCRIT 27.6 % (36-46); HEMOGLOBIN 9.2 g/dL (12.0-16.0)
[2018-12-23] MEDS: LOVASTATIN 20 MG TABLET PO SCH (21:00)
[2018-12-23] MEDS: CARVEDILOL 3.125 MG TABLET PO SCH (21:00)
[2018-12-23] MEDS: PANTOPRAZOLE SODIUM 40 MG/VIAL IVP SCH (21:33)
[2018-12-24 00:29] VITALS: BP 143/55
[2018-12-24 04:37] VITALS: BP 153/62
[2018-12-24 04:51] LABS: GLUCOMETER DEV NAME(LOC) 5N.1; GLUCOSE,POINT OF CARE 164 MG/DL (70-110)
[2018-12-24] MEDS: CefoTEtan DISOD 1 GM/DEXTROSE 50 ML IV SCH ×2 (05:47→16:09)
[2018-12-24 07:25] LABS: BASOPHILS % (AUTO) 1.3 % (0.0-2.0); EOSINOPHILS % (AUTO) 3.4 % (1.0-6.0); HEMATOCRIT 28.7 % (36-46); HEMOGLOBIN 9.7 g/dL (12.0-16.0); LYMPHOCYTES % (AUTO) 14.2 % (22.0-44.0); MEAN CORPUSCULAR HEMOGLOBIN 32.6 pg (26.0-34.0); MEAN CORPUSCULAR HGB CONC 33.8 G/dL (31.0-37.0); MEAN CORPUSCULAR VOLUME 97 fL (80-100); MONOCYTES # (AUTO) 0.5 K/uL (0.1-1.0); MONOCYTES % (AUTO) 7.4 % (2.0-9.0); NEUTROPHILS # (AUTO) 5.3 K/uL (1.8-7.7); NEUTROPHILS % (AUTO) 73.7 % (40.0-70.0); PLATELET COUNT (AUTO) 181 K/uL (150-450); RED BLOOD CELL COUNT(AUTO) 2.97 MIL/uL (4.00-5.20); RED CELL DISTRIBUTION WIDTH 14.5 % (11.5-14.5)
[2018-12-24 07:40] VITALS: BP 109/48
[2018-12-24 07:46] LABS: CALCIUM, TOTAL 8.4 mg/dL (8.8-10.5); CREATININE 1.03 mg/dL (0.60-1.30); POTASSIUM 4.1 mmol/L (3.5-5.1)
[2018-12-24] MEDS: FERROUS SULFATE 325 MG EC TABLET PO SCH (08:00)
[2018-12-24 08:01] LABS: GLUCOMETER DEV NAME(LOC) 5S.1; GLUCOSE,POINT OF CARE 139 MG/DL (70-110)
[2018-12-24] MEDS: CYANOCOBALAMIN 500 MCG TABLET PO SCH (08:08)
[2018-12-24] MEDS: DOCUSATE SODIUM 100 MG CAPSULE PO SCH ×2 (08:08→22:00)
[2018-12-24] MEDS: CITALOPRAM HYDROBROMIDE 20 MG TABLET PO SCH (08:08)
[2018-12-24] MEDS: FOLIC ACID 0.4 MG TABLET PO SCH (08:08)
[2018-12-24] MEDS: CARVEDILOL 3.125 MG TABLET PO SCH ×2 (08:08→22:00)
[2018-12-24] MEDS: LISINOPRIL 5 MG TABLET PO SCH (08:09)
[2018-12-24] MEDS: PANTOPRAZOLE SODIUM 40 MG/VIAL IVP SCH (08:34)
[2018-12-24 11:42] VITALS: BP 159/46
[2018-12-24] MEDS ORDERED: SODIUM CHLORIDE 0.9% 1,000 ML IV ONE (13:35)
[2018-12-24] MEDS ORDERED: PANTOPRAZOLE SODIUM 80 MG in SODIUM CHLORIDE 0.9% 100 ML IV SCH (14:30)
[2018-12-24 15:45] VITALS: BP 148/73
[2018-12-24] MEDS: SODIUM CHLORIDE 0.9% 1,000 ML IV SCH (16:09)
[2018-12-24] MEDS ORDERED: LIDOCAINE 2% 5 ML JELLY TP ONE (16:15)
[2018-12-24] MEDS ORDERED: PROPOFOL 1% 20 ML VIAL IVP ONE (16:15)
[2018-12-24 20:00] LABS: GLUCOMETER DEV NAME(LOC) 5S.1; GLUCOSE,POINT OF CARE 150 MG/DL (70-110)
[2018-12-24 20:00] LABS: GLUCOMETER DEV NAME(LOC) 5N.1; GLUCOSE,POINT OF CARE 145 MG/DL (70-110)
[2018-12-24 20:16] VITALS: BP 107/45
[2018-12-24] MEDS: OMEPRAZOLE 20 MG CAPSULE PO SCH (21:59)
[2018-12-24] MEDS: LOVASTATIN 20 MG TABLET PO SCH (22:00)
[2018-12-25 00:03] VITALS: BP 145/72
[2018-12-25 03:11] LABS: GLUCOMETER DEV NAME(LOC) 5S.1; GLUCOSE,POINT OF CARE 134 MG/DL (70-110)
[2018-12-25] MEDS: SODIUM CHLORIDE 0.9% 1,000 ML IV SCH (05:01)
[2018-12-25] MEDS: CefoTEtan DISOD 1 GM/DEXTROSE 50 ML IV SCH ×2 (05:01→17:08)
[2018-12-25 05:11] VITALS: BP 147/74
[2018-12-25] MEDS: INSULIN LISPRO 100 UNITS/ML SQ PRN ×3 (05:50→17:09)
[2018-12-25 06:02] LABS: BASOPHILS % (AUTO) 1.2 % (0.0-2.0); EOSINOPHILS % (AUTO) 4.1 % (1.0-6.0); HEMATOCRIT 26.8 % (36-46); LYMPHOCYTES # (AUTO) 0.9 K/uL (1.0-4.8); MEAN CORPUSCULAR HEMOGLOBIN 32.5 pg (26.0-34.0); MEAN CORPUSCULAR HGB CONC 33.6 G/dL (31.0-37.0); MEAN CORPUSCULAR VOLUME 97 fL (80-100); MONOCYTES # (AUTO) 0.5 K/uL (0.1-1.0); MONOCYTES % (AUTO) 8.7 % (2.0-9.0); NEUTROPHILS # (AUTO) 4.5 K/uL (1.8-7.7); PLATELET COUNT (AUTO) 198 K/uL (150-450); RED BLOOD CELL COUNT(AUTO) 2.78 MIL/uL (4.00-5.20); RED CELL DISTRIBUTION WIDTH 14.7 % (11.5-14.5)
[2018-12-25 06:09] LABS: CALCIUM, TOTAL 7.9 mg/dL (8.8-10.5); CREATININE 0.92 mg/dL (0.60-1.30); POTASSIUM 4.1 mmol/L (3.5-5.1)
[2018-12-25 08:03] VITALS: BP 144/69
[2018-12-25] MEDS: DOCUSATE SODIUM 100 MG CAPSULE PO SCH ×2 (08:36→20:45)
[2018-12-25] MEDS: LISINOPRIL 5 MG TABLET PO SCH (08:36)
[2018-12-25] MEDS: CYANOCOBALAMIN 500 MCG TABLET PO SCH (08:37)
[2018-12-25] MEDS: FOLIC ACID 0.4 MG TABLET PO SCH (08:37)
[2018-12-25] MEDS: CITALOPRAM HYDROBROMIDE 20 MG TABLET PO SCH (08:37)
[2018-12-25] MEDS: FERROUS SULFATE 325 MG EC TABLET PO SCH (08:37)
[2018-12-25] MEDS: CARVEDILOL 3.125 MG TABLET PO SCH ×2 (08:37→20:45)
[2018-12-25] MEDS: OMEPRAZOLE 20 MG CAPSULE PO SCH ×2 (08:37→20:45)
[2018-12-25 11:21] LABS: GLUCOMETER DEV NAME(LOC) 5N.2; GLUCOSE,POINT OF CARE 181 MG/DL (70-110)
[2018-12-25 13:00] VITALS: BP 147/59
[2018-12-25 16:08] VITALS: BP 150/74
[2018-12-25 20:01] VITALS: BP 148/69
[2018-12-25] MEDS: LOVASTATIN 20 MG TABLET PO SCH (20:44)
[2018-12-25 22:46] LABS: GLUCOMETER DEV NAME(LOC) 5N.2; GLUCOSE,POINT OF CARE 144 MG/DL (70-110)
[2018-12-26 00:16] VITALS: BP 156/77
[2018-12-26] MEDS: INSULIN LISPRO 100 UNITS/ML SQ PRN ×4 (00:39→16:42)
[2018-12-26 02:15] LABS: GLUCOMETER DEV NAME(LOC) 5N.1; GLUCOSE,POINT OF CARE 156 MG/DL (70-110)
[2018-12-26 04:16] VITALS: BP 150/61
[2018-12-26] MEDS: CefoTEtan DISOD 1 GM/DEXTROSE 50 ML IV SCH ×2 (04:16→16:39)
[2018-12-26 05:56] LABS: GLUCOMETER DEV NAME(LOC) 5N.2; GLUCOSE,POINT OF CARE 162 MG/DL (70-110)
[2018-12-26 06:42] LABS: BASOPHILS % (AUTO) 0.7 % (0.0-2.0); EOSINOPHILS % (AUTO) 4.1 % (1.0-6.0); HEMATOCRIT 25.9 % (36-46); HEMOGLOBIN 8.6 g/dL (12.0-16.0); MEAN CORPUSCULAR HEMOGLOBIN 32.5 pg (26.0-34.0); MEAN CORPUSCULAR HGB CONC 33.4 G/dL (31.0-37.0); MEAN CORPUSCULAR VOLUME 97 fL (80-100); MONOCYTES # (AUTO) 0.5 K/uL (0.1-1.0); MONOCYTES % (AUTO) 8.7 % (2.0-9.0); NEUTROPHILS # (AUTO) 4.1 K/uL (1.8-7.7); NEUTROPHILS % (AUTO) 69.5 % (40.0-70.0); PLATELET COUNT (AUTO) 203 K/uL (150-450); RED BLOOD CELL COUNT(AUTO) 2.66 MIL/uL (4.00-5.20); RED CELL DISTRIBUTION WIDTH 14.7 % (11.5-14.5)
[2018-12-26 06:55] LABS: CALCIUM, TOTAL 7.9 mg/dL (8.8-10.5); CREATININE 1.08 mg/dL (0.60-1.30); POTASSIUM 4.1 mmol/L (3.5-5.1)
[2018-12-26 07:36] VITALS: BP 141/60
[2018-12-26] MEDS: FERROUS SULFATE 325 MG EC TABLET PO SCH (08:03)
[2018-12-26] MEDS: DOCUSATE SODIUM 100 MG CAPSULE PO SCH ×2 (08:03→20:53)
[2018-12-26] MEDS: FOLIC ACID 0.4 MG TABLET PO SCH (08:04)
[2018-12-26] MEDS: CITALOPRAM HYDROBROMIDE 20 MG TABLET PO SCH (08:04)
[2018-12-26] MEDS: OMEPRAZOLE 20 MG CAPSULE PO SCH ×2 (08:04→20:53)
[2018-12-26] MEDS: LISINOPRIL 5 MG TABLET PO SCH (08:04)
[2018-12-26] MEDS: CYANOCOBALAMIN 500 MCG TABLET PO SCH (08:04)
[2018-12-26] MEDS: CARVEDILOL 3.125 MG TABLET PO SCH ×2 (08:04→20:53)
[2018-12-26 11:38] VITALS: BP 136/64
[2018-12-26 11:46] LABS: GLUCOMETER DEV NAME(LOC) 5N.1; GLUCOSE,POINT OF CARE 206 MG/DL (70-110)
[2018-12-26 14:46] LABS: GLUCOMETER DEV NAME(LOC) 5N.2; GLUCOSE,POINT OF CARE 185 MG/DL (70-110)
[2018-12-26 15:42] VITALS: BP 138/54
[2018-12-26 20:16] VITALS: BP 149/61
[2018-12-26] MEDS: LOVASTATIN 20 MG TABLET PO SCH (20:53)
[2018-12-27 00:07] VITALS: BP 153/60
[2018-12-27] MEDS: INSULIN LISPRO 100 UNITS/ML SQ PRN ×3 (00:45→12:16)
[2018-12-27 05:30] VITALS: BP 148/61
[2018-12-27 06:18] LABS: GLUCOMETER DEV NAME(LOC) 5S.1; GLUCOSE,POINT OF CARE 209 MG/DL (70-110)
[2018-12-27] MEDS: CefoTEtan DISOD 1 GM/DEXTROSE 50 ML IV SCH ×2 (06:18→17:37)
[2018-12-27] MEDS ORDERED: SODIUM CHLORIDE 0.9% 250 ML IV ONE (06:28)
[2018-12-27 07:36] LABS: GLUCOMETER DEV NAME(LOC) 5S.2A; GLUCOSE,POINT OF CARE 164 MG/DL (70-110)
[2018-12-27 07:36] LABS: GLUCOMETER DEV NAME(LOC) 5N.2; GLUCOSE,POINT OF CARE 249 MG/DL (70-110)
[2018-12-27 08:15] VITALS: BP 154/72
[2018-12-27] MEDS: CYANOCOBALAMIN 500 MCG TABLET PO SCH (08:51)
[2018-12-27] MEDS: LISINOPRIL 5 MG TABLET PO SCH (08:51)
[2018-12-27] MEDS: CARVEDILOL 3.125 MG TABLET PO SCH (08:51)
[2018-12-27] MEDS: CITALOPRAM HYDROBROMIDE 20 MG TABLET PO SCH (08:51)
[2018-12-27] MEDS: FOLIC ACID 0.4 MG TABLET PO SCH (08:51)
[2018-12-27] MEDS: OMEPRAZOLE 20 MG CAPSULE PO SCH (08:52)
[2018-12-27] MEDS: DOCUSATE SODIUM 100 MG CAPSULE PO SCH (08:52)
[2018-12-27] MEDS: FERROUS SULFATE 325 MG EC TABLET PO SCH (08:52)
[2018-12-27 11:59] VITALS: BP 144/99
[2018-12-27 13:37] LABS: GLUCOMETER DEV NAME(LOC) 5N.1; GLUCOSE,POINT OF CARE 255 MG/DL (70-110)
[2018-12-27 15:09] VITALS: BP 125/85
[2018-12-28 18:52] LABS: GLUCOMETER DEV NAME(LOC) 5N.1; GLUCOSE,POINT OF CARE 217 MG/DL (70-110)
== END 2018-12-27 18:30 | DRG 871 ==
LOC: EMS 06:57 → 5S 22:00
PROVIDERS: ADMIT Internal Medicine; ATTEND Internal Medicine
PROC: 0DJ08ZZ Inspection of Upper Intestinal Tract, Via Natural or Artificial Opening Endoscopic (ICD-10-PCS; principal; 2018-12-24 12:30)
DX: A41.9 Sepsis, unspecified organism (principal); K25.4 Chronic or unspecified gastric ulcer with hemorrhage; J69.0 Pneumonitis due to inhalation of food and vomit; N39.0 Urinary tract infection, site not specified; N17.9 Acute kidney failure, unspecified; E44.0 Moderate protein-calorie malnutrition; R65.20 Severe sepsis without septic shock; F03.90 Unspecified dementia, unspecified severity, without behavioral disturbance, psychotic disturbance, mood disturbance, and anxiety; E11.22 Type 2 diabetes mellitus with diabetic chronic kidney disease; N18.3 Chronic kidney disease, stage 3 (moderate); D63.8 Anemia in other chronic diseases classified elsewhere; E78.00 Pure hypercholesterolemia, unspecified; I12.9 Hypertensive chronic kidney disease with stage 1 through stage 4 chronic kidney disease, or unspecified chronic kidney disease; K94.21 Gastrostomy hemorrhage; Y83.3 Surgical operation with formation of external stoma as the cause of abnormal reaction of the patient, or of later complication, without mention of misadventure at the time of the procedure; E87.5 Hyperkalemia; K20.9 Esophagitis, unspecified; E11.65 Type 2 diabetes mellitus with hyperglycemia; I25.10 Atherosclerotic heart disease of native coronary artery without angina pectoris; K59.00 Constipation, unspecified; Z74.01 Bed confinement status; Z86.19 Personal history of other infectious and parasitic diseases; Z95.0 Presence of cardiac pacemaker; Z68.31 Body mass index [BMI] 31.0-31.9, adult; Z79.899 Other long term (current) drug therapy; Z79.82 Long term (current) use of aspirin; Z79.4 Long term (current) use of insulin; Y92.89 Other specified places as the place of occurrence of the external cause
CPT/HCPCS: 51702; 71250; 72192; 74150; 83605; 84145; 85007; 85014; 85018; 86850; 86900; 86901; 87040; 87081; 87086; 93005; 94640; 96365; 99291; C9113; J0610; J0696; J1815; J2185; J2543; J2704; J3370; J3490; J7030; J7050; J7060